=== PATIENT | male | born 1980 | race Caucasian/White ===

== ENCOUNTER → 2017-06-27 16:47 | Outpatient (CLI) | payer OTHER, SELFPAY ==
--- NOTE | 2017-06-27 16:52 | RAD_ITS ---
STUDY: X-RAY CHEST REASON FOR EXAM: Male, 37 years old. Chronic cough. TECHNIQUE: PA and lateral views of the chest. COMPARISON: CT dated May 20, 2015 FINDINGS: There are bibasilar streaky opacities. Normal size heart. Normal mediastinum and henrietta. Normal visualized pulmonary arteries. Normal visualized aortic arch and descending thoracic aorta. Normal visualized thoracic spine. Normal visualized ribs, clavicles, and shoulders. There is no demonstrated abnormality of the visualized soft tissue structures of the upper abdomen. RAD/Chest PA and Lateral IMPRESSION: Bibasilar streaky opacities likely secondary to underlying atelectasis and/or scarring. Electronically Signed: Luly Disla MD at 17:30 EDT Tel , Service support ,
== END ==
PROVIDERS: Family Provider Family Medicine; PCP Family Medicine; Visit Provider Family Medicine
DX: R05 Cough (principal)
CPT/HCPCS: 71046

== ENCOUNTER → 2018-09-20 | Outpatient (CLI) | payer OTHER, SELFPAY ==
[2018-09-20 12:32] LABS: AST(SGOT) 13 U/L (15-37); Alanine Aminotransfer ALT/SGPT 26 U/L (16-61); Alkaline Phosphatase 82 U/L (45-117); Anion Gap 8 (5-15); BUN 27 mg/dL (7-18); BUN/Creat Ratio 24.1 RATIO (10-20); Chloride 105 mmol/L (98-107); Creatinine, Serum 1.12 mg/dL (0.70-1.30); EST Glomerular Filtration Rate 77 mL/min (>60); Est Glom Filt Rate - Afr Amer 93 mL/min (>60); Globulin 4.1 g/dL (2.2-4.2); Glucose 88 mg/dL (74-106); Protein, Total 8.1 g/dL (6.4-8.2); Sodium Level 140 mmol/L (136-145)
[2018-09-20 12:57] LABS: Absolute Lymphocyte Count 0.71 X10^3/uL (0.83-4.51); Absolute Neutrophil Count 4.2 X10^3/uL (2.0-7.7); Basophil# 0.02 X10^3/uL; Basophil% 0.4 % (0-1); Eosinophil# 0.03 X10^3/uL; Eosinophils% 0.5 % (0-5); Hematocrit 47.3 % (40-54); Hemoglobin 15.5 g/dL (13.0-16.5); Lymphocyte # 0.71 X10^3/ul (4.0); Lymphocyte % 12.9 % (19-41); Mean Corp Hgb Conc 32.8 g/dL (32-36); Mean Corpuscular Hgb 28.8 pg (27.0-32.0); Mean Corpuscular Volume 87.9 fL (80-94); Mean Platelet Vol. 10.7 fl (6.2-12.0); Monocyte# 0.52 X10^3/uL; Monocyte% 9.4 % (0-10); NRBC Flagged by Analyzer 0 % (0-5); Neutrophil # 4.22 X10^3/uL (2.7-7.7); Neutrophil % 76.4 % (47-70); Platelet Count 214 K/mm3 (150-450); RBC Distribution Width CV 12.8 % (11.6-14.6); RBC Distribution Width SD 41.4 fl (35.1-43.9); Red Blood Count 5.38 M/mm3 (4.6-6.2); White Blood Count 5.5 K/mm3 (4.4-11.0)
[2018-09-20 12:59] LABS: Erythrocyte Sedimentation Rate 6 mm/hr (0-15)
[2018-09-21 15:11] LABS: ANTINUCLEAR ANTIBODIES DIRECT Negative (Negative)
== END | disposition home or self-care (01) ==
LOC: MFPLAB 10:19
PROVIDERS: Family Provider Family Medicine; PCP Family Medicine; Referring Provider Family Medicine; Visit Provider Family Medicine
DX: R50.9 Fever, unspecified (principal)
CPT/HCPCS: 36415; 80053; 85025; 85652; 86038

== ENCOUNTER → 2020-01-01 16:20 | Outpatient (CLI) | payer SELFPAY | PROVIDERS: PCP Family Medicine; Visit Provider Family Medicine | DX: Z20.828 Contact with and (suspected) exposure to other viral communicable diseases (principal) | CPT/HCPCS: 87635; U0003 ==

== ENCOUNTER 2020-04-23 12:16 | Outpatient (RCR) | payer OTHER, SELFPAY | END 2020-04-23 23:59 | LOC: IMMUN 12:16 | PROVIDERS: PCP Family Medicine; Visit Provider Family Medicine | DX: Z23 Encounter for immunization (principal) | CPT/HCPCS: 0011A; 0012A ==

== ENCOUNTER 2021-03-02 16:30 | Outpatient (CLI) | payer OTHER, SELFPAY | END 2021-03-02 23:59 | disposition short-term general hospital (02) | PROVIDERS: PCP Nurse Practitioner Family; Referring Provider Nurse Practitioner Family; Visit Provider Nurse Practitioner Family | DX: U07.1 COVID-19 (principal) | CPT/HCPCS: 87635; U0003; U0005 ==

== ENCOUNTER → 2021-09-13 | Outpatient (CLI) | payer OTHER, SELFPAY ==
[2021-09-13 12:16] LABS: Absolute Lymphocyte Count 1.64 X10^3/uL (0.83-4.51); Absolute Neutrophil Count 2.9 X10^3/uL (2.0-7.7); Basophil# 0.04 X10^3/uL; Basophil% 0.8 % (0-1); Eosinophil# 0.07 X10^3/uL; Eosinophils% 1.3 % (0-5); Hematocrit 46.6 % (40-54); Hemoglobin 15.3 g/dL (13.0-16.5); Lymphocyte # 1.64 X10^3/ul (0.83-4.51); Lymphocyte % 31.2 % (19-41); Mean Corp Hgb Conc 32.8 g/dL (32-36); Mean Corpuscular Hgb 28.3 pg (27.0-32.0); Mean Corpuscular Volume 86.3 fL (80-94); Mean Platelet Vol. 10.9 fl (6.2-12.0); Monocyte# 0.58 X10^3/uL; NRBC Flagged by Analyzer 0 % (0-5); Neutrophil # 2.92 X10^3/uL (2.7-7.7); Neutrophil % 55.5 % (47-70); Platelet Count 236 K/mm3 (150-450); RBC Distribution Width CV 13.1 % (11.6-14.6); RBC Distribution Width SD 40.8 fl (35.1-43.9); White Blood Count 5.3 K/mm3 (4.4-11.0)
[2021-09-13 12:40] LABS: ALB/GLOB Ratio 1.1 RATIO (0.9-2.4); AST(SGOT) 15 U/L (15-37); Alanine Aminotransfer ALT/SGPT 30 U/L (16-61); Albumin, Serum 4.1 g/dL (3.2-5.0); Alkaline Phosphatase 74 U/L (45-117); Anion Gap 5 (5-15); BUN 22 mg/dL (7-18); BUN/Creat Ratio 19.6 RATIO (10-20); Calcium,Total 9.4 mg/dL (8.5-10.1); Chloride 109 mmol/L (98-107); Cholesterol 208 mg/dL (200); Creatinine, Serum 1.12 mg/dL (0.70-1.30); EST Glomerular Filtration Rate 76 mL/min (>60); Est Glom Filt Rate - Afr Amer 92 mL/min (>60); Globulin 3.9 g/dL (2.2-4.2); Glucose 91 mg/dL (74-106); High Density Lipoprotein 32 mg/dL; Potassium 4.4 mmol/L (3.5-5.1); Sodium Level 140 mmol/L (136-145); Thyroid Stim Hormone (TSH) 1.02 uIU/mL (0.358-3.74); Triglycerides 350 mg/dL; Very Low Density Lipoprotein 70 mg/dL (5-40)
== END | disposition home or self-care (01) ==
LOC: MFPLAB 10:47
PROVIDERS: PCP Nurse Practitioner Family; Visit Provider Family Medicine
DX: Z00.00 Encounter for general adult medical examination without abnormal findings (principal); Z13.29 Encounter for screening for other suspected endocrine disorder; Z13.0 Encounter for screening for diseases of the blood and blood-forming organs and certain disorders involving the immune mechanism; Z13.1 Encounter for screening for diabetes mellitus
CPT/HCPCS: 36415; 80053; 80061; 83036; 84443; 85025

== ENCOUNTER → 2023-05-05 | Outpatient (CLI) | payer OTHER, SELFPAY ==
--- OUTSIDE RECORDS SUMMARY | 2023-05-05 17:36 | XMS RPT_ITS | CCD ---
Author Name Unknown Address [address] [place] [address] Organization [facility] Care Team Providers Care Customer Contact Specialist Name Role Phone Unavailable Primary Care Provider Mary Jolly (Pss) Primary Care Provider TATIANA Cagle Referring Unavailable Medications Current Medications Medication Drug Class(es) Dates Sig (Normalized) Sig (Original) amoxicillin 875 mg / clavulanate 125 mg oral tablet (1 source) Penicillin-class Antibacterial Start: 12-10-2022 End: 12-17-2022 take 1 tablet by mouth twice daily amoxicillin-clavulan ic acid (AUGMENTIN) 875-125 mg per tablet Indications: Rhinosinusitis Take 1 tablet by mouth two times a day for 7 days. 14 tablet 0 12/10/2022 12/17/2022 Active Completed/Discontinued Medications Medication Drug Class(es) Dates Sig (Normalized) Sig (Original) apremilast 30 mg oral tablet (2 sources) Start: 11-20-2022 OTEZLA 30 mg tablet Problems Problem Classification Problem Date Documented Da te Episodic/Chronic Other lower respiratory disease (1 source) Cough; Translations: [Acute cough] 12-10-2022 Episodic Other upper respiratory infections (1 source) Chronic sinusitis, unspecified; Translations: [Unspecified sinusitis (chronic)] 12-10-2022 Chronic Results Test Name Value Interpretation Reference Range Facil ity Vital Signs Date Time Vital Sign Value Performing Clinician Petrona mauricio 12-10-2022 08:27-0400 Body temperature 97.81 [degF] Kathleen Callejas APRN.CNP Work Phone: [facility] 12-10-2022 08:27-0400 Body weight 93.44 kg Kathleen Callejas APRN.CNP Work Phone: [facility] 12-10-2022 08:27-0400 Diastolic blood pressure 86 mm[Hg] Kathleen Callejas APRN.TERMINAL MANAGER Work Phone: [facility] 12-10-2022 08:27-0400 Heart rate 68 /min Kathleen Callejas APRN.TERMINAL MANAGER Work Phone: [facility] 12-10-2022 08:27-0400 Respiratory rate 18 /min Kathleen Callejas APRN.TERMINAL MANAGER Work Phone: [facility] 12-10-2022 08:27-0400 SaO2% (BldA) [Mass fraction] 96 % Kathleen Callejas APRN.TERMINAL MANAGER Work Phone: [facility] 12-10-2022 08:27-0400 Systolic blood pressure 125 mm[Hg] Kathleen Callejas APRN.TERMINAL MANAGER Work Phone: [facility] Encounters Encounter Date Encounter Type Care Provider Facility Start: 02-15-2023 End: 02-15-2023 ambulatory [facility] Facility:[facility] Start: 12-27-2022 Telephone encounter Tatiana sewell APRN.TERMINAL MANAGER Work Phone: [facility] Plan of Treatment Date Care Activity Detail Author Start: 09-14-2031 Urine microalbumin profile DTaP,Tdap,Td Vaccine (3 - Td or Tdap) [facility] Start: 10-28-2022 Covid-19 Vaccine ( season) Covid-19 Vaccine ( season) [facility] Start: 10-28-2022 Influenza vaccination Influenza Vacc ine (#1) [facility] Start: 02-27-2022 Depression Assessment Depression Ass essment [facility] Start: 2013 Lipid 1996 panel - S desean or Plasma Lipid Screening [facility] Start: 1997 Shingrix Vaccine (1 of 2) Shingrix V accine (1 of 2) [facility] Start: 1997 Urine microalbumin profile DTaP,Tdap,Td Vaccine (1 - Tdap) [facility] Start: 1996 Hepatitis C Screening Hepatitis C Sc reina [facility] Start: 1996 HIV Screening HIV Screening [facility] Start: 1984 Pneumococcal vaccination Pneum ococcal Vaccine (1 - PCV) [facility] Start: 1978 Hepatitis B Vaccine (1 of 3 - 3-dose series) Hepatitis B Vaccine (1 of 3 - 3-dose series) [facility] Immunizations Immunization Date Immunization Notes Care Provider Rigoberto abel 11-11-2020 influenza virus vacc ine, unspecified formulation Kathleen Callejas APRN.TERMINAL MANAGER Work Phone: [facility] Payers Date Payer Category Payer Unknown MMO MMO [employer] PPO [id number] 2018-Present [phone] [address] [place] [address] PPO [id number] 2018 Unknown [id number] 2018 Unknown [id number] Social History Date Type Detail Facility [facility]: [facility] Start: 12-10-2022 Tobacco use and exposure Smoke less tobacco non-user [facility] Start: 12-10-2022 End: 12-27-2022 Alcohol intake Current non-drinker of alcohol (finding) [facility] Start: 12-10-2022 End: 12-27-2022 History of Social function [facility] Start: 12-10-2022 End: 12-27-2022 Tobacco use panel [facility] Start: 1978 Sex Assigned At Not on file [facility] Progress note 02-15-2023 Note Date & Type Note Facility 02-15-2023 Note HNO ID: [id number] Author: Ashlyn Garcia APRN.TERMINAL MANAGER Service: ? Author Type: Nurse Practitioner Type: Progress Notes Filed: 02/15/2023 4:53 PM Note Text: Subjective Sinus Problem Associated symptoms include congestion, coughing and headaches. Pertinent negatives include no chills, fever or sore throat. Haseeb Peterson is a 42 year old male who presents with 10 days of sinus congestion and cough, worse in the past few days and recently having facial/sinus pressure on the right side of his face. No fever. He took a couple COVID tests at home which were negative. He has been taking Dayquil at home for symptoms. Review of Systems Constitutional: Negative for chills and fever. HENT: Positive for congestion and sinus pain. Negative for sore throat. Respiratory: Positive for cough and sputum production. Negative for shortness of breath. Cardiovascular: Negative. Neurological: Positive for headaches. BP 124/82 Pulse 66 Temp 36.8 ?C (98.2 ?F) Resp 16 Wt 94.9 kg (209 lb 3.2 oz) SpO2 97% No past medical history on file. PAST SURGICAL HISTORY Procedure Laterality Date APPENDECTOMY TONSILLECTOMY PRIMARY/SECONDARY Tonsillectomy ALLERGIES Patient has no known allergies. MEDICATIONS amoxicillin-clavulanate potassium (AUGMENTIN) 875-125 mg per tablet Take 1 tablet by mouth two times a day for 7 days. OTEZLA 30 mg tablet No family history on file. Social History Tobacco Use Smoking status: Never Smokeless tobacco: Never Substance Use Topics Alcohol use: No Drug use: No Objective Physical Exam Vitals and nursing note reviewed. Constitutional: Appearance: Normal appearance. HENT: Right Ear: Tympanic membrane, ear canal and external ear normal. Left Ear: Tympanic membrane, ear canal and external ear normal. Nose: Nasal tenderness, congestion and rhinorrhea present. Mouth/Throat: Pharynx: Uvula midline. No oropharyngeal exudate or posterior oropharyngeal erythema. Cardiovascular: Rate and Rhythm: Normal rate and regular rhythm. Heart sounds: Normal heart sounds. Pulmonary: Effort: Pulmonary effort is normal. No respiratory distress. Breath sounds: Normal breath sounds. No wheezing or rales. Musculoskeletal: Cervical back: Neck supple. Lymphadenopathy: Cervical: No cervical adenopathy. Skin: General: Skin is warm and dry. Findings: No erythema or rash. Neurological: Mental Status: He is alert. ASSESSMENT/PLAN: 1. Bacterial sinusitis - ICD9: 473.9, 041.9, ICD10: J32.9, B96.89 - Will begin treatment with as per antibiotic as written, see orders - The patient should also be given flonase nasal spray for the first 5-7 days of treatment. - Supportive care with plenty of fluids, rest, and analgesia prn. - AMOXICILLIN 875 MG-POTASSIUM CLAVULANATE 125 MG TABLET - Follow-up with your PCP in 3-5 days if symptoms have not improved or sooner if symptoms worsen - Discussed red flags and need for immediate medical evaluation if any occur. - Discussed supportive care treatment with fluids, rest and analgesia. - Discussed expected course of illness Ashlyn Garcia APRN.ARIADNA [facility] Progress note 12-27-2022 Note Date & Type Note Facility 12-27-2022 Note HNO ID: [id number] Author: Tatiana Amado APRN.TERMINAL MANAGER Service: ? Author Type: Nurse Practitioner Type: Progress Notes Filed: 12/27/2022 9:54 AM Note Text: Subjective HPI HPI Haseeb Peterson is a 42 year old male who presents today for CC of right great toe pain/redness. This started 2 days ago. Has tried otc medication without relief. Symptoms are worsened by rom/walking. Never had this before, denies injury. Hx of psoriatic arthritis. .Patient presents with: Pain (foot): right foot and great toe pain x 2 days No past medical history on file. PAST SURGICAL HISTORY Procedure Laterality Date APPENDECTOMY TONSILLECTOMY PRIMARY/SECONDARY Tonsillectomy ALLERGIES Patient has no known allergies. MEDICATIONS OTEZLA 30 mg tablet No family history on file. Social History Tobacco Use Smoking status: Never Smokeless tobacco: Never Substance Use Topics Alcohol use: No Drug use: No ROS Objective Blood pressure 112/72, pulse 70, temperature 36.1 ?C (96.9 ?F), resp. rate 16, weight 93.9 kg (207 lb), SpO2 98 %. Physical Exam Constitutional: General: He is not in acute distress. Appearance: He is not toxic-appearing or diaphoretic. HENT: Head: Normocephalic and atraumatic. Pulmonary: Effort: Pulmonary effort is normal. No accessory muscle usage or respiratory distress. Musculoskeletal: Feet: Neurological: Mental Status: He is alert and oriented to person, place, and time. ASSESSMENT/PLAN: 1. Great toe pain, right - ICD9: 729.5, ICD10: M79.674 Suspect first flair of gout Xray negative Declines lab testing. Tx with steroids F/u with pcp if s/s persist. - XR TOE AP/LAT/OBL RIGHT IMPRESSION: No radiographic evidence of acute osseous abnormality Dictated by : CIPRIANO DIAZ MD - PREDNISONE 10 MG TABLET Tatiana Amado APRN.ARIADNA [facility] Progress note 12-27-2022 Note Date & Type Note Facility 12-27-2022 Note HNO ID: [id number] Author: Liliana Ca RT(R) Service: Radiology Author Type: Technologist Type: Progress Notes Filed: 12/27/2022 8:12 AM Note Text: Radiology Service Progress Note PATIENT NAME: Haseeb Peterson DATE OF SERVICE: December 27, 2022 TIME: 8:01 AM PATIENT IDENTITY VERIFICATION COMPLETED USING TWO (2) IDENTIFIERS: Name and Date of confirmed by patient verbally. FALL SCREENING: Has the patient had 2 falls in the last year or 1 fall with injury or currently using an Ambulatory Assistive Device (Walker, Cane, Wheelchair, Crutches, etc.)? No PATIENT GENDER DATA: Male PATIENT RELEVANT IMPLANT DATA REVIEWED: Not Applicable RADIOLOGY DEPARTMENT: General X-ray: Exam(s) Completed: Lower Extremity X-Ray(s): Toes, Right PERIPHERAL IV DATA: Not applicable SIGNED BY: RT Mila(R) December 27, 2022 8:01 AM [facility] Note 12-27-2022 Telephone Encounter - Cecille Bocanegra RN - 12/27/2022 8:44 AM EDTTelephone Encounter - Delia Yuan LPN - 12/27/2022 8:41 AM EDT Note Date & Type Note Facility 12-27-2022 Miscellaneous Notes Formattin g of this note might be different from the original. Patient returned call and given provider's message below and patient verbalized understanding. Vania Bocanegra RN LEFT MESSAGE FOR PATIENT TO CALL BACK /SHERRY FAN Please notify that xray normal. Prednisone to pharmacy. documented in this encounter [facility] Progress note 12-10-2022 Note Date & Type Note Facility 12-10-2022 Note HNO ID: [id number] Author: Kathleen Callejas APRN.TERMINAL MANAGER Service: ? Author Type: Nurse Practitioner Type: Progress Notes Filed: 12/10/2022 8:37 AM Note Text: CC: Patient presents with: Pain, Sinus: Head congestion, pain in ears and teeth x 10 days HPI: Hsaeeb Peterson is a 42 year old male who presents to the office with complaint of head congestion, cough, nonproductive, and sinus symptoms for 10 days. Symptoms are worsening Associated symptoms includes nasal congestion, facial pain/pressure, and ear pressure . Denies fever, nausea, vomiting , and diarrhea. Treatments tried include nothing so far. with no relief of symptoms. Sick contacts: unknown. History of asthma, frequent episodes of bronchitis, chronic bronchitis, bronchiectasis or COPD: No Smoker: No Seasonal/environmental allergies: No The ROS is otherwise negative. The patient's pmh, medications, allergies, and past visits are reviewed. PHYSICAL EXAM: BP 125/86 Pulse 68 Temp 36.6 ?C (97.8 ?F) Resp 18 Wt 93.4 kg (206 lb) SpO2 96% General appearance: alert, cooperative, pleasant, in no acute distress Head: Normocephalic Eyes: EOM's intact, conjunctiva pink and moist, no icterus, sclera white, non-injected Ears: Right ear: External ear/canal- Normal, TM - clear with good landmarks. Left ear: External ear/canal- Normal, TM - clear with good landmarks Oropharynx:moist without lesions, No erythema, exudates or tonsillar hypertrophy. Heart: Negative. RRR without obvious murmur, gallop, or rubs. No ectopy. Lungs: clear to auscultation, without rales or wheeze, good air exchange No past medical history on file. PAST SURGICAL HISTORY Procedure Laterality Date APPENDECTOMY TONSILLECTOMY PRIMARY/SECONDARY Tonsillectomy ALLERGIES Patient has no known allergies. MEDICATIONS amoxicillin-clavulanic acid (AUGMENTIN) 875-125 mg per tablet Take 1 tablet by mouth two times a day for 7 days. OTEZLA 30 mg tablet No family history on file. Social History Tobacco Use Smoking status: Never Smokeless tobacco: Never Substance Use Topics Alcohol use: No Drug use: No ASSESSMENT/PLAN: 1. Rhinosinusitis - ICD9: 473.9, ICD10: J32.9 (primary diagnosis) - AMOXICILLIN 875 MG-POTASSIUM CLAVULANATE 125 MG TABLET - PREDNISONE 20 MG TABLET 2. Acute cough - ICD9: 786.2, ICD10: R05.1 - BENZONATATE 100 MG CAPSULE Prescription instructions reviewed with patient as applicable. Potential red flag symptoms discussed with the patient. Reviewed appropriate action plan to take if red flag symptoms occur. Patient agreeable to treatment plan. Kathleen Callejas APRN.ARIADNA [facility] History of Present illness Narrative 12-10-2022 Kathleen Callejas APRN.ARIADNA - 12/10/2022 8:35 AM EDT Note Date & Type Note Facility 12-10-2022 History of Presen t illness Narrative CC: Patient presents with: Pain, Sinus: Head congestion, pain in ears and teeth x 10 days HPI: Haseeb Peterson is a 42 year old male who presents to the office with complaint of head congestion, cough, nonproductive, and sinus symptoms for 10 days. Symptoms are worsening Associated symptoms includes nasal congestion, facial pain/pressure, and ear pressure . Denies fever, nausea, vomiting , and diarrhea. Treatments tried include nothing so far. with no relief of symptoms. Sick contacts: unknown. History of asthma, frequent episodes of bronchitis, chronic bronchitis, bronchiectasis or COPD: No Smoker: No Seasonal/environmental allergies: No The ROS is otherwise negative. The patient's pmh, medications, allergies, and past visits are reviewed. PHYSICAL EXAM: BP 125/86 Pulse 68 Temp 36.6 C (97.8 F) Resp 18 Wt 93.4 kg (206 lb) SpO2 96% General appearance: alert, cooperative, pleasant, in no acute distress Head: Normocephalic Eyes: EOM's intact, conjunctiva pink and moist, no icterus, sclera white, non-injected Ears: Right ear: External ear/canal- Normal, TM - clear with good landmarks. Left ear: External ear/canal- Normal, TM - clear with good landmarks Oropharynx:moist without lesions, No erythema, exudates or tonsillar hypertrophy. Heart: Negative. RRR without obvious murmur, gallop, or rubs. No ectopy. Lungs: clear to auscultation, without rales or wheeze, good air exchange No past medical history on file. PAST SURGICAL HISTORY Procedure Laterality Date APPENDECTOMY TONSILLECTOMY PRIMARY/SECONDARY <AGE 10 Tonsillectomy ALLERGIES Patient has no known allergies. MEDICATIONS amoxicillin-clavulanic acid (AUGMENTIN) 875-125 mg per tablet Take 1 tablet by mouth two times a day for 7 days. OTEZLA 30 mg tablet No family history on file. Social History Tobacco Use Smoking status: Never Smokeless tobacco: Never Substance Use Topics Alcohol use: No Drug use: No ASSESSMENT/PLAN: 1. Rhinosinusitis - ICD9: 473.9, ICD10: J32.9 (primary diagnosis) - AMOXICILLIN 875 MG-POTASSIUM CLAVULANATE 125 MG TABLET - PREDNISONE 20 MG TABLET 2. Acute cough - ICD9: 786.2, ICD10: R05.1 - BENZONATATE 100 MG CAPSULE Prescription instructions reviewed with patient as applicable. Potential red flag symptoms discussed with the patient. Reviewed appropriate action plan to take if red flag symptoms occur. Patient agreeable to treatment plan. Kathleen Callejas APRN.ARIADNA documented in this encounter [facility] Evaluation note Note Date & Type Note Facility documented in this encounter [facility] Summary Purpose Family History No Family History Records Found Advance Directives No Advanced Directives Records Found Additional Source Comments Source Comments (unrecognize d section and content) In the event this informatio n is protected by the Federal Confidentiality of Alcohol and Drug Abuse Patient Records regulations: The Federal rules restrict any use of the information to criminally investigate or prosecute any alcohol or drug abuse patient[facility] the event this information is protected by the Federal Confidentiality of Alcohol and Drug Abuse Patient Records regulations: The Federal rules restrict any use of the information to criminally investigate or prosecute any alcohol or drug abuse patient.[facility] Reason for Visit (unrecogniz ed section and content) Reason Comments Results Care Teams (unrecognized sec tion and content) (unrecognized sect ion and content) No Status Records Found INFORMATION SOURCE (unrecogn ized section and content) FOR RECORDS PERTAINING TO PATIENTS WHO ARE OR HAVE BEEN ENROLLED IN A CHEMICAL DEPENDENCY/SUBSTANCEABUSE PROGRAM, SOME INFORMATION MAY BE OMITTED. This clinical summary was aggregated from multiple sources. Caution should be exercised in using it in the provision of clinical care. This summary normalizes information from multiple sources, and as a consequence, information in this document may materially change the coding, format and clinical context of patient data. In addition, data may be omitted in some cases. CLINICAL DECISIONS SHOULD BE BASED ON THE PRIMARY CLINICAL RECORDS. [facility] [employer] [facility]. provides no warranty or guarantee of the accuracy or completeness of information in this document.
[2023-05-05 17:38] LABS: Hematocrit 43.3 % (40-54); Hemoglobin 14.5 g/dL (13.0-16.5); Mean Corp Hgb Conc 33.5 g/dL (32-36); Mean Corpuscular Hgb 29.1 pg (27.0-32.0); Mean Corpuscular Volume 86.8 fL (80-94); Mean Platelet Vol. 11.4 fl (6.2-12.0); Platelet Count 251 K/mm3 (150-450); RBC Distribution Width CV 12.7 % (11.6-14.6); RBC Distribution Width SD 39.8 fl (35.1-43.9); Red Blood Count 4.99 M/mm3 (4.6-6.2); White Blood Count 6.9 K/mm3 (4.4-11.0)
[2023-05-05 17:50] LABS: Erythrocyte Sedimentation Rate 5 mm/hr (0-20)
[2023-05-05 18:18] LABS: Uric Acid 6.8 mg/dL (3.5-7.2)
== END | disposition home or self-care (01) ==
LOC: MFPLAB 16:06
PROVIDERS: PCP Nurse Practitioner Family; Visit Provider Family Medicine
DX: M10.9 Gout, unspecified (principal)
CPT/HCPCS: 36415; 84550; 85027; 85652

== ENCOUNTER → 2023-06-19 | Outpatient (CLI) | payer OTHER, SELFPAY ==
[2023-06-19 17:45] LABS: Uric Acid 8.3 mg/dL (3.5-7.2)
== END | disposition home or self-care (01) ==
LOC: MFPLAB 15:41
PROVIDERS: PCP Nurse Practitioner Family; Visit Provider Family Medicine
DX: M10.9 Gout, unspecified (principal)
CPT/HCPCS: 36415; 84550

== ENCOUNTER → 2024-04-30 | Outpatient (CLI) | payer OTHER, SELFPAY ==
[2024-05-02 16:08] LABS: QNTFERON TB Mitogen Value > 10.00 IU/mL (.); QNTFERON TB Nil Value > 10.00 IU/mL (.); QNTFERON TB1+ Ag Value > 10.00 IU/mL (.); QNTFERON TB2+ Ag Value > 10.00 IU/mL (.); QNTIFERON TB Positive Criteria Indeterminate (Negative)
== END | disposition home or self-care (01) ==
LOC: MTLAB 15:22
PROVIDERS: PCP Nurse Practitioner Family; Referring Provider Physician Assistant; Visit Provider Physician Assistant
DX: L40.0 Psoriasis vulgaris (principal); Z79.899 Other long term (current) drug therapy
CPT/HCPCS: 36415; 86480

== ENCOUNTER → 2024-05-31 | Outpatient (CLI) | payer OTHER, SELFPAY ==
[2024-06-03 16:08] LABS: QNTFERON TB Mitogen Value > 10.00 IU/mL (.); QNTFERON TB Nil Value > 10.00 IU/mL (.); QNTFERON TB1+ Ag Value > 10.00 IU/mL (.); QNTFERON TB2+ Ag Value > 10.00 IU/mL (.); QNTIFERON TB Positive Criteria Indeterminate (Negative)
== END | disposition home or self-care (01) ==
LOC: MTLAB 07:45
PROVIDERS: PCP Nurse Practitioner Family; Referring Provider Physician Assistant; Visit Provider Physician Assistant
DX: L40.0 Psoriasis vulgaris (principal)
CPT/HCPCS: 36415; 86480

== ENCOUNTER → 2024-08-08 | Outpatient (CLI) | payer OTHER, SELFPAY ==
[2024-08-08 10:45] LABS: Absolute Lymphocyte Count 1.55 X10^3/uL (0.83-4.51); Absolute Neutrophil Count 2.3 X10^3/uL (2.0-7.7); Basophil# 0.04 X10^3/uL; Basophil% 0.9 % (0-1); Eosinophil# 0.06 X10^3/uL; Eosinophils% 1.3 % (0-5); Hemoglobin 14.8 g/dL (13.0-16.5); Lymphocyte # 1.55 X10^3/ul (0.83-4.51); Lymphocyte % 34.1 % (19-41); Mean Corp Hgb Conc 33.6 g/dL (32-36); Mean Corpuscular Volume 86.3 fL (80-94); Mean Platelet Vol. 10.8 fl (6.2-12.0); Monocyte# 0.55 X10^3/uL; Monocyte% 12.1 % (0-10); NRBC Flagged by Analyzer 0 % (0-5); Neutrophil # 2.34 X10^3/uL (2.7-7.7); Neutrophil % 51.4 % (47-70); Platelet Count 209 K/mm3 (150-450); RBC Distribution Width CV 12.7 % (11.6-14.6); RBC Distribution Width SD 39.9 fl (35.1-43.9); White Blood Count 4.6 K/mm3 (4.4-11.0)
[2024-08-08 11:13] LABS: ALB/GLOB Ratio 1.5 RATIO (0.9-2.4); AST(SGOT) 20 U/L (<=37); Alanine Aminotransfer ALT/SGPT 19 U/L (<=46); Albumin, Serum 4.4 g/dL (3.5-5.0); Alkaline Phosphatase 74 U/L (40-129); Anion Gap 12 (5-15); BUN 20 mg/dL (4-19); BUN/Creat Ratio 18.2 RATIO (10-20); Calcium,Total 9.7 mg/dL (7.6-11.0); Carbon Dioxide 23.1 mmol/L (21.0-32.0); Chloride 105 mmol/L (98-108); Cholesterol 209 mg/dL (<=200); Creatinine, Serum 1.12 mg/dL (0.70-1.20); EST Glomerular Filtration Rate 82 (>60); Glucose 93 mg/dL (70-99); High Density Lipoprotein 32 mg/dL; Low Density Lipoprotein Calc. 117 mg/dL; Potassium 4.5 mmol/L (3.3-5.1); Protein, Total 7.4 g/dL (5.9-8.4); Sodium Level 139 mmol/L (133-145); Total Bilirubin 0.78 mg/dL (0.00-1.30); Triglycerides 298 mg/dL; Very Low Density Lipoprotein 60 mg/dL (5-40); cholesterol:hdl ratio screen 6.51
--- OUTSIDE RECORDS SUMMARY | 2024-08-08 16:31 | XMS RPT_ITS | CCD ---
Author Organization [facility] Care Team Providers Care Software Program Manager Name Role Phone Unavailable Primary Care Provider UnavailMary Lange ([facility]) Primary Care Provider Sana vailable TATIANA AMADO Referring Unavailable Mary Flores ([facility]) Primary Care Provider Sana vailable Sidney COMMERCIAL FISHERMAN-C, Shelley Primary Care Provider [phone] PA-CLatrice Attending Provider [phone] PA-C, Latrice Referring Provider Latrice Morse Attending Unavailable Latrice Morse Referring Unavailable Sidney COMMERCIAL FISHERMAN, Shelley Primary Care Unavailable Sidney COMMERCIAL FISHERMAN, Shelley Primary Care Unavailable Lupe Willoughyb Attending Unavailable PALatrice Attending Unavailable Latrice Morse Referring Unavailable Sidney COMMERCIAL FISHERMAN, Shelley Primary Care Unavailable Sidney COMMERCIAL FISHERMAN, Shelley Referring Unavailable Brian Leon Attending Unavailable Sidney COMMERCIAL FISHERMAN, Shelley Primary Care Unavailable Medications Current Medications Medication Drug Class(es) [...] days. 14 tablet 0 12/10/2022 12/17/2022 Active Comment on above: Take 1 tablet by sakina th two times a day for 7 days. apremilast 30 mg oral tablet (7 sources) Start: 11-20-2023 take 1 tablet by mouth once Apremilast (Otezla) 30 mg tablet Active 30 mg PO ONCE November 20, 2023 6:14am Start: 11-20-2023 End: 11-20-2023 take 1 tablet by mouth twice daily Apremilast (Otezla) 30 mg tablet Discontinued 30 mg PO TWICE A DAY November 20, 2023 12:00am November 20, 2023 6:14am Start: 11-20-2022 OTEZLA 30 mg t ablet 11/20/2022 Active benzonatate 100 mg oral capsule (1 source) Non-narcotic Antitussive Start: 12-10-2022 End: 12-17-2022 take 1 capsule by mouth every eight hours as needed for cough and cough benzonatate (TESSALON PERLES) 100 mg capsule Indications: Acute cough Take 1 capsule by mouth three times a day as needed for up to 7 days. 21 capsule 0 12/10/2022 12/17/2022 Active Comment on above: Take 1 capsule by mo [facility] three times a day as needed for up to 7 days. predniSONE 10 mg oral tablet (2 sources) Start: 12-27-2022 End: 01-08-2023 predniSONE (DELTASONE) 10 mg tablet Indications: Great toe pain, right Take 4 tabs daily x 3 days, then 3 tabs x 3 days, 2 tabs x 3 days, then 1 tab x3 days with food. 30 tablet 0 12/27/2022 01/08/2023 Active Start: 12-10-2022 End: 12-15-2022 take 2 tablets by mouth once daily predniSONE (DELTASONE) 20 mg tablet Indications: Rhinosinusitis Take 2 tablets by mouth once daily for 5 days. 10 tablet 0 12/10/2022 12/15/2022 Active Comment on above: Take 2 tablets by [facility] once daily for 5 days. Take 4 tabs daily x 3 days, then 3 tabs x 3 days, 2 tabs x 3 days, then 1 tab x3 days with food. tobramycin 3 mg/ml ophthalmic solution (2 sources) Aminoglycoside Antibacterial Start: 11-20-2023 Tobramycin 0.3 % drops Active 1 NMA OPHTHALMIC Q2H 5 November 20, 2023 12:00am to affected eye while awake first 24 hours, then 3x/day on days 2-5 Problems Problem Classification Problem Date Documented Da te Episodic/Chronic Gout and other crystal arthropathies (1 source) Gout, unspecified; Translations: [Gout, unspecified] Onset: 06-25-2023 Chronic Other inflammatory condition of skin (1 source) Psoriasis vulgaris; Translations: [Psoriasis vulgaris] Onset: 06-03-2024 Chronic Other lower respiratory disease (1 source) Cough; Translations: [Acute cough] 12-10-2022 Episodic Other upper respiratory infections (1 source) Chronic sinusitis, unspecified; Translations: [Unspecified sinusitis (chronic)] 12-10-2022 Chronic Results Test Name Value Interpretation Reference Range Facility Quantiferon TB-Gold+on 06-03 QFT MITOGEN BONNIE > 10.00 Normal . [facility] Comment on above: Performed By: #### L 3400.8000 #### [facility] [address] [place], [place], [phone] (487) QFT NIL VALUE > 10.00 Normal . [facility] Comment on above: Performed By: #### L [id number] #### [facility] [address] [place], [place], [id number] (774) QFT TB GOLD+ Comment Normal . [facility] Comment on above: Result Comment: Surinder tiFERON-TB Gold Plus is a qualitative indirect test for M tuberculosis infection (including disease) and is intended for use in conjunction with risk assessment, radiography, and other medical and diagnostic evaluations. The QuantiFERON-TB Gold Plus result is determined by subtracting the Nil value from either TB antigen (Ag) value. The Mitogen tube serves as a control for the test. Performed By: #### L 3400.8000 #### [facility] [address] [place], [place], [phone] (115) QFT TB POS CRIT Indeterminate Abnormal Negative [facility] Comment on above: Result Comment: Nil (negative control) gave high response. This indicated elevated levels of circulating interferon gamma or the presence of heterophile antibodies. The specimen received for QuantiFERON testing was incubated by the ordering institution. Specific procedures outlined in our Directory of Services and in the package insert for the QuantiFERON Gold (In Tube) test must be followed to enable for proper stimulation of cells for the production of interferon gamma. Chemiluminescence immunoassay methodology Performed at: [facility] [employer] [id number] Nick Setter: Maverick Celeste PhD, Phone: [phone] Performed By: #### L [id number] #### [facility] [address] [place], [place], [id number] QFT TB1+ AG BONNIE > 10.00 Normal . [facility] Comment on above: Performed By: #### L [id number] #### [facility] [address] [place], [place], [id number] QFT TB2+ AG BONNIE > 10.00 Normal . [facility] Comment on above: Performed By: #### L [id number] #### [facility] [address] [place], [address] M. tuberculosis tuberculin s alexandra IFN-g Ql (Bld)Ordered By: Latrice Aguilar on 05-31-2024 TB Test (QFT) Antigen 1 > 10.00 IU/mL . [facility] Quantiferon-TB Gold Plus tiffany tOrdered By: Latrice Aguilar on 05-31-2024 TB Test (QFT) Comment . [facility] Comment on above: QuantiFERON-TB Gold Plus is a qualitative indirect test forM tuberculosis infection (including disease) and isintended for use in conjunction with risk assessment,radiography, and other medical and diagnostic evaluations.The QuantiFERON-TB Gold Plus result is determined bysubtracting the Nil value from either TB antigen (Ag)value. The Mitogen tube serves as a control for the test. TB Test (QFT) Antigen 2 > 10.00 IU/mL . [facility] TB Test (QFT) Mitogen > 10.00 IU/mL . [facility] TB Test (QFT) Nil > 10.00 IU/mL . [facility] TB Test (QFT) Positive Criteria Indeterminate High Negative [facility] Comment on above: Nil (negative contro l) gave high response. This indicatedelevated levels of circulating interferon gamma or thepresence of heterophile antibodies.The specimen received for QuantiFERON testing was incubatedby the ordering institution. Specific procedures outlinedin our Directory of Services and in the package insert forthe QuantiFERON Gold (In Tube) test must be followed toenable for proper stimulation of cells for the productionof interferon gamma. Chemiluminescence immunoassaymethodologyPerformed at: [facility] [employer] [id number] Director: Maverick Celeste PhD, Phone: [phone] Quantiferon TB-Gold+on 05-02 QFT MITOGEN BONNIE > 10.00 Normal . [facility] Comment on above: Performed By: #### L [id number] #### [facility] [address] [place], [address] QFT NIL VALUE > 10.00 Normal . [facility] Comment on above: Performed By: #### L [id number] #### [facility] [address] [place], [address] QFT TB GOLD+ Comment Normal . [facility] Comment on above: Result Comment: Surinder tiFERON-TB Gold Plus is a qualitative indirect test for M tuberculosis infection (including disease) and is intended for use in conjunction with risk assessment, radiography, and other medical and diagnostic evaluations. The QuantiFERON-TB Gold Plus result is determined by subtracting the Nil value from either TB antigen (Ag) value. The Mitogen tube serves as a control for the test. Performed By: #### L [id number] #### [facility] [address] [place], [place], [id number] QFT TB POS CRIT Indeterminate Abnormal Negative [facility] Comment on above: Result Comment: Nil (negative control) gave high response. This indicated elevated levels of circulating interferon gamma or the presence of heterophile antibodies. The specimen received for QuantiFERON testing was incubated by the ordering institution. Specific procedures outlined in our Directory of Services and in the package insert for the QuantiFERON Gold (In Tube) test must be followed to enable for proper stimulation of cells for the production of interferon gamma. Chemiluminescence immunoassay methodology Performed at: [facility] [address] [place], [place] [id number] Nick Setter: Maverick Celeste PhD, Phone: [phone] Performed By: #### L [id number] #### [facility] [address] [place], [place], [id number] QFT TB1+ AG BONNIE > 10.00 Normal . [facility] Comment on above: Performed By: #### L [id number] #### [facility] [address] [place], [place], [id number] QFT TB2+ AG BONNIE > 10.00 Normal . [facility] Comment on above: Performed By: #### L [id number] #### [facility] [address] [place], [address] M. tuberculosis tuberculin s alexandra IFN-g Ql (Bld)Ordered By: Latrice Aguilar on 04-30-2024 TB Test (QFT) Antigen 1 > 10.00 IU/mL . [facility] Quantiferon-TB Gold Plus tiffany tOrdered By: Latrice Aguilar on 04-30-2024 TB Test (QFT) Comment . [facility] Comment on above: QuantiFERON-TB Gold Plus is a qualitative indirect test forM tuberculosis infection (including disease) and isintended for use in conjunction with risk assessment,radiography, and other medical and diagnostic evaluations.The QuantiFERON-TB Gold Plus result is determined bysubtracting the Nil value from either TB antigen (Ag)value. The Mitogen tube serves as a control for the test. TB Test (QFT) Antigen 2 > 10.00 IU/mL . [facility] TB Test (QFT) Mitogen > 10.00 IU/mL . [facility] TB Test (QFT) Nil > 10.00 IU/mL . [facility] TB Test (QFT) Positive Criteria Indeterminate High Negative [facility] Comment on above: Nil (negative contro l) gave high response. This indicatedelevated levels of circulating interferon gamma or thepresence of heterophile antibodies.The specimen received for QuantiFERON testing was incubatedby the ordering institution. Specific procedures outlinedin our Directory of Services and in the package insert forthe QuantiFERON Gold (In Tube) test must be followed toenable for proper stimulation of cells for the productionof interferon gamma. Chemiluminescence immunoassaymethodologyPerformed at: - [facility] [id number] [place], [place] [id number] Director: Maverick Celeste PhD, Phone: [phone] Urgent Care Visit Reporton 0 11-20-2023 Urgent Care Visit Report [facility] [address], [address] [place] [address] OFFICE VISIT Date of Service: 11/20/23 MR#: [id number] Acct: [id number] Name: HASEEB DOVER Rep #: [id number] : 1980 Provider: FEDERICA Jerry Age/Sex: 43/M [facility] [facility] Status: Signed Intake Vital Signs 11/20/23 06:13 Height 5 ft 11 in Weight: 208 lb BMI 29.0 BP 116/60 Pulse 75 Temp 98.6 F Temp Source Temporal Pulse Oximetry (%) 98 Oxygen Delivery Method room air Intake Visit Reasons: L EYE COMPLAINT/CONCERN FOR PINK EYE Allergies No Known Allergies Allergy (Verified 11/20/23 06:10) Medications ???Medication ???Instructions ???Recorded ???Confirmed ???Type apremilast 30 mg tablet (Otezla) 30 mg PO ONCE 11/20/23 11/20/23 History tobramycin 0.3 % eye drops 1 drp ophthalmic (eye) Q2H #5 mL 11/20/23 11/20/23 Rx PFSH Social History Smoking Status: Never smoker HPI HPI Details: HASEEB DOVER, is a 43 M who presents to the office today for initial evaluation new onset left eye conjunctival injection with exudate first noticed this morning upon awakening. No vision changes or eye globe pain. No complaints of fever, chills, sweats, lightheadedness/dizziness, nausea/vomiting. No segx-hgc-gzvrbew ophthalmic drops tried to assist. No other associated symptoms and no other alleviating/aggravating factors. ROS Const Constitutional: No other (As above) Exam Const General: cooperative, healthy appearing and no acute distress Orientation: alert, awake and oriented x3 HENMT Head: normal to inspection Ears: hearing grossly normal bilaterally and external ears normal Nose: external nose normal and no nasal discharge Eyes General: appearance normal, both eyes and all related structures Other: Except left conjunctival injection with exudate; negative limbus OU Neck Neck: normal visual inspection, no meningeal signs and supple Resp Effort Inspection: normal respiratory effort and able to speak in complete sentences Cardio Rate: regular rate Pulses: radial pulses present Skin General: no rashes or lesions noted Neuro General: patient alert, patient awake and patient oriented x3 Cognition: normal cognition Speech: speech normal Psych Appearance: grossly normal Mental Status: mental status grossly normal Mood: congruent mood Affect: normal affect Speech and Movement: speech and movement normal Attitude: cooperative Diagnoses Acute conjunctivitis H10.30 Assessment and Plan Assessment and Plan (1) Acute conjunctivitis: Status: Acute Plan: Tobrex drops as prescribed today to affected eye(s). Supportive measures as instructed today. Work excuse declined. Follow-up with PCP or ophthalmology in 2 to 3 days should symptoms not improve, sooner should symptoms only worsen or any other concerns develop. Patient states acknowledging understanding all the above Coding Level of Care Code Off vis,new,level 3 Assessment and Plan Assessment and Plan Medications: New tobramycin 0.3% to affected eye while awake first 24 hours, then 3x/day on days 2-5 1 drp ophthalmic (eye) Q2H 5 mL 0RF 11/20/23 0725 Date ___ Brian Doyle Signature: Date ___ (if applicable) CC: Normal [facility] Serum or plasma uric acid me asurement (mass/volume)Ordered By: Lupe Willoughby on 06-19-2023 Urate [Mass/Vol] 8.3 mg/dL 3.5-7.2 [facility] Comment on above: The drugs N-Acetylcy steine and Metamizole may falsely depress this assay. Uric Acidon 06-19-2023 URIC 8.3 mg/dL High 3.5-7.2 [facility] Comment on above: Result Comment: The drugs N-Acetylcysteine and Metamizole may falsely depress this assay. Performed By: #### L 501.1400 #### [facility] [address] [place], [address] Basophil percentageOrdered B y: Lupe Willoughby on 05-05-2023 Hemoglobin (Bld) [Mass/Vol] 14.5 g/dL 13.0-16.5 [facility] WBC (Bld) [#/Vol] 6.9 10*3/uL 4.4-11.[address] [facility] Determination of erythrocyte mean corpuscular volume (MCV)Ordered By: Lupe Willoughby on 05-05-2023 MCV (RBC) [Entitic vol] 86.8 fL 80-94 [facility] Erythrocyte distribution wid th ratioOrdered By: Lupe Willoughby on 05-05-2023 Erythrocyte distribution width (RBC) [Ratio] 12.7 % 11.6-14.6 [facility] Erythrocyte distribution wid th standard deviationOrdered By: Lupe Willoughby on 05-05-2023 Erythrocyte distribution width (RBC) [Entitic vol] 39.8 fL 35.1-43.9 [facility] Erythrocyte sedimentation ra teOrdered By: Lupe Willoughby on 05-05-2023 ESR (Bld) [Velocity] 5 mm/h 0-20 [facility] Hematocrit Auto (Bld) [Volum e fraction]Ordered By: Lupe Willoughby on 05-05-2023 Hematocrit (Bld) [Volume fraction] 43.3 % 40-54 [facility] - Hematology and Cell countsOrdered By: Lupe Willoughby on 05-05-2023 MCH (RBC) [Entitic mass] 29.1 pg 27.0-32.0 [facility] MCHC (RBC) [Mass/Vol] 33.5 g/dL 32-36 [facility] Platelet mean volume (Bld) [Entitic vol] 11.4 fL 6.2-12.0 [facility] Platelets (Bld) [#/Vol] 251 10*3/uL 150-450 [facility] RBC Auto (Bld) [#/Vol]Ordere d By: Lupe Willoughby on 05-05-2023 RBC (Bld) [#/Vol] 4.99 10*6/uL 4.6-6.2 [facility] Serum or plasma uric acid me asurement (mass/volume)Ordered By: Lupe Willoughby on 05-05-2023 Urate [Mass/Vol] 6.8 mg/dL 3.5-7.2 [facility] Comment on above: The drugs N-Acetylcy steine and Metamizole may falsely depress this assay. CNOVon 02-15-2023 CNOV Office Visit ([facility] ) HASEEB DOVER ([id number]) 1980 M Date Time Provider Department 02/15/23 4:45 PM ASHLYN GARCIA [facility] During your visit today, we recorded the following information about you: Temperature Pulse Respiration Blood pressure 98.2 degrees 66/minute 16/minute 124/82 Weight 94.9 kg Ashlyn Garcia APRN.CNP 02/15/2023 4:51 PM Signed ASSESSMENT/PLAN: 1. Bacterial sinusitis - ICD9: 473.9, [...] Discussed expected course of illness Ashlyn Garcia APRN.CNP Adult Sinusitis Patient Education What is Sinusitis? Sinusitis [nksk-ogc-nebi-tis] is inflammation of the sinuses or swelling of the lining of the sinus cavity or nose. During an infection the sinuses become blocked with fluid causing swelling of the lining of the sinuses. Symptoms: (viral and bacterial infections) Stuffy nose Runny nose Postnasal drip Fever Toothache Headache Tiredness Cough Sore throat Face and head pressure and or pain Common causes: 98% of sinus infections are viral caused by viruses. Risk Factors of Sinusitis Include: Allergies, air pollution, indoor humidity and outdoor temperature changes, andstructural changes in the nose may contribute to sinus pain, pressure and congestion. When to get help? Temperature greater than 100.4 ?F Symptoms lasting more than 10 days or worsening symptoms greater than 7-10 days. If you do not improve or worsen after a course of antibiotics, you should be re-examined. Diagnosis and Treatment: Your healthcare provider will ask a number of questions about your symptoms and how long they have occurred. If symptoms of sinusitis persist greater than 10 days, it is possible you have a bacterial sinus infection and an antibiotic is prescribed. If it is viral, antibiotics will not help. You may be instructed to take kply-tuh-trlccvo medications for symptoms. including fever reducers acetaminophen or ibuprofen, nasal saline spray, cough and cold preparations and decongestants as prescribed by the physician, nurse practitioner or physician assistant fitness manager. Self-Care and Prevention: Rest Fluids for hydration Good hand washing Humidifier Avoid smoking and exposure to second hand smoke Avoid sick contacts Ashlyn Garcia APRN.TRAIN ATTENDANT 02/15/2023 4:53 PM Signed Subjective Sinus Problem Associated symptoms include congestion, coughing and headaches. Pertinent negatives include no chills, fever or sore throat. Haseeb Dover is a 42 year old male who [...] effort is normal. No respiratory distress. Breath (more content not included)... Normal [facility] CNOVon 12-27-2022 CNOV Office Visit ([facility] ) HASEEB DOVER ([id number]) 1980 M Date Time Provider Department 12/27/22 7:15 AM TATIANA AMADO [facility] During your visit today, we recorded the following information about you: Temperature Pulse Respiration Blood pressure 96.9 degrees 70/minute 16/minute 112/72 Weight 93.9 kg Tatiana Amado APRN.CNP 12/27/2022 9:54 AM Signed Subjective HPI HPI Haseeb Dunbarfredy is a 42 year old male who [...] - PREDNISONE 10 MG TABLET Tatiana Amado APRN.Tatiana Boyd APRN.CNP 12/27/2022 8:08 AM Signed Low Purine Diet Recommendations for Gout Gout is a form of arthritis which can occur as sudden, severe attacks of pain, with redness and tenderness in the joints of the body. Too much uric acid in the blood (hyperuricemia), is one cause of gout. Uric acid is a waste product formed from the breakdown of purines. It is helpful to lower your uric acid level through your diet as well as by taking your prescribed medication. Foods high in primes which should be avoided include: Organ meats: such as liver, brain, kidneys, heart, and sweetbreads Game meats: goose, partridge, duck Gravy, broth, bouilloin, and consomme Mincemeat Seafood such as garcia, sardines, anchovies, scallops, mussels, mackerel, caviar and kehinde (fish eggs) Yeast extracts such as: Marmite, Vegemite, Triana's and Bhatti's yeast. In addition to avoiding the above named foods, other aspects of your diet should also be considered. Increase Your Fluid Consumption - Fluids aid in the removal of uric acid from the body. Drink approximately 8-10 eight ounce glasses of water or other non-caloric fluid per day. Weight Control - Maintain a healthy weight. Obesity is associated with gout and may contribute to the onset of the disease. If you are overweight make strong efforts to decrease the amount of food you consume. Excess weight puts additional stress on your joints and increases the risk of hyperuricemia and gout. Avoid low carbohydrate type diets because they are high in protein and fat which can increase the amount of uric acid in the blood. Avoid or Limit Alcohol - Drinking too much alcohol increases the risk of hyperuremia because it interferes with the removal or uric acid from the body. Moderate Protein Intake - Smaller amounts of purines are found in all types of meat, fish and poultry products. It is generally recommended that meat, fish, and poultry be limited to no more than 6-8 ounces per day. Allergies As of Date: 12/27/2022 (No Known Allergies) Date Reviewed: 12/27/2022 Reviewed by: Kayla Adams - Fully Assessed Reason for Visit: Pain (foot) [760] Cmt: right foot and great toe pain x 2 days Primary Visit Diagnosis:Great toe pain, right [M79.674] Order(s):XR TOE AP/LAT/OBL RIGHT [[id number]] Order #: [id number]. #:[id number] predniSONE (DELTASONE) 10 mg tabletTake 4 tabs daily x 3 days, then 3 tabs x 3 days, 2 tabs x 3 days, then 1 tab x3 days with food.Disp: 30 tabletRfl: 0 Prescriptions as of 12/27/2022 - predniSONE (DELTASONE) 10 mg tablet Take 4 tabs daily x 3 days, then 3 tabs x 3 days, 2 tabs x 3 days, then 1 tab x3 days with food. - OTEZLA 30 mg tablet Problem List As Of Date: 12/27/2022 (None) Other instructions from your clinician: Low Purine Diet Recommen (more content not included)... Normal [facility] ([id number]) 1980 M Date Time Provider Department 12/27/22 TATIANA AMADO [facility] During your visit today, we recorded the following information about you: Tatiana Amado APRN.TRAIN ATTENDANT 12/27/2022 8:35 AM Signed Please notify that xray normal. Prednisone to pharmacy. Delia Yuan LPN 12/27/2022 8:41 AM Signed LEFT MESSAGE FOR PATIENT TO CALL BACK /Cecille Clark LPN, RN 12/27/2022 8:44 AM Signed Patient returned call and given provider's message below and patient verbalized understanding. Vania Bocanegra RN Allergies As of Date: 12/27/2022 (No Known Allergies) Date Reviewed: 12/27/2022 Reviewed by: Kayla Adams - Fully Assessed Reason for Visit: Results [95] Prescriptions as of 12/27/2022 - predniSONE (DELTASONE) 10 mg tablet Take 4 tabs daily x 3 days, then 3 tabs x 3 days, 2 tabs x 3 days, then 1 tab x3 days with food. - OTEZLA 30 mg tablet Problem List As Of Date: 12/27/2022 (None) Encounter Status:Closed by CECILLE BOCANEGRA on 12/27/22 [facility] XR TOE 3V AP/LAT/OBL RTon XR TOE 3V AP/LAT/OBL RT * * *Final Report* * * DATE OF EXAM: Dec 27 2022 8:12AM WOX [id number] - XR TOE 3V AP/LAT/OBL RT / PROCEDURE REASON: Great toe pain, right * * * * Physician Interpretation * * * * TITLE: XR TOE 3V AP/LAT/OBL RT CLINICAL INDICATION: No brain TECHNIQUE: 3 view radiographic study of the right great toe COMPARISON: None FINDINGS: No acute fracture or dislocation identified. No radiographic evidence of destructive osseous lesion. Joint spaces preserved. No radiopaque foreign body. IMPRESSION: No radiographic evidence of acute osseous abnormality Manager Entry: [facility] Transcribe Date/Time: Dec 27 2022 8:15A Dictated by : CIPRIANO DIAZ MD This examination was interpreted and the report reviewed and electronically signed by: CIPRIANO DIAZ MD on Dec 27 2022 8:16AM EST [id number] Normal [facility] XR Toes - right 3 Viewson IMPRESSION: No radiographic evidence of acute osseous abnormality Manager Entry: [facility] Transcribe Date/Time: Dec 27 2022 8:15A Dictated by : CIPRIANO DIAZ MD This examination was interpreted and the report reviewed and electronically signed by: CIPRIANO DIAZ MD on Dec 27 2022 8:16AM EST DIVISION OF RADIOLOGY * * *Final Report* * * DATE OF EXAM: Dec 27 2022 8:12AM WOX [id number] - XR TOE 3V AP/LAT/OBL RT / PROCEDURE REASON: Great toe pain, right * * * * Physician Interpretation * * * * TITLE: XR TOE 3V AP/LAT/OBL RT CLINICAL INDICATION: No brain TECHNIQUE: 3 view radiographic study of the right great toe COMPARISON: None FINDINGS: No acute fracture or dislocation identified. No radiographic evidence of destructive osseous lesion. Joint spaces preserved. No radiopaque foreign body. DIVISION [facility]OLOGY [facility] * * *Final Report* * * DATE OF EXAM: Dec 27 2022 8:12AM WOX [id number] - XR TOE 3V AP/LAT/OBL RT / PROCEDURE REASON: Great toe pain, right * * * * Physician Interpretation * * * * TITLE: XR TOE 3V AP/LAT/OBL RT CLINICAL INDICATION: No brain TECHNIQUE: 3 view radiographic study of the right great toe COMPARISON: None FINDINGS: No acute fracture or dislocation identified. No radiographic evidence of destructive osseous lesion. Joint spaces preserved. No radiopaque foreign body. IMPRESSION IMPRESSION: No radiographic evidence of acute osseous abnormality Manager Entry: [facility] Transcribe Date/Time: Dec 27 2022 8:15A Dictated by : CIPRIANO DIAZ MD This examination was interpreted and the report reviewed and electronically signed by: CIPRIANO DIAZ MD on Dec 27 2022 8:16AM EST [facility] Radiology Study observation (narrative) [facility] XR Toes - right 3 ViewsOrder ed By: Ccf Provider on 12-27-2022 [facility] CNOVon 12-10-2022 CNOV Office Visit (UCWSTR ) HASEEB DOVER ([id number]) 1980 M Date Time Provider Department 12/10/22 8:45 AM KATHLEEN STILES [facility] During your visit today, we recorded the following information about you: Temperature Pulse Respiration Blood pressure 97.8 degrees 68/minute 18/minute 125/86 Weight 93.4 kg Kathleen Stiles APRN.TRAIN ATTENDANT 12/10/2022 8:37 AM Signed CC: Patient presents with: Pain, Sinus: Head congestion, pain in ears and teeth x 10 days HPI: Haseeb Dover is a 42 year old male who [...] occur. Patient agreeable to treatment plan. Kathleen Stiles APRN.TRAIN ATTENDANT Allergies As of Date: 12/10/2022 (No Known Allergies) Date Reviewed: 12/10/2022 Reviewed by: Katerin Miller LPN - Fully Assessed Reason for Visit: Pain, Sinus [857] Cmt: Head congestion, pain in ears and teeth x 10 days Primary Visit Diagnosis:Rhinosinusitis [J32.9] Other Visit Diagnosis:Acute cough [R05.1] Order(s):amoxicillin-clavulanic acid (AUGMENTIN) 875-125 mg per tabletTake 1 tablet by mouth two times a day for 7 days.Disp: 14 tabletRfl: 0 predniSONE (DELTASONE) 20 mg tabletTake 2 tablets by mouth once daily for 5 days.Disp: 10 tabletRfl: 0 benzonatate (TESSALON PERLES) 100 mg capsuleTake 1 capsule by mouth three times a day as needed for up to 7 days.Disp: 21 capsuleRfl: 0 Prescriptions as of 12/10/2022 - amoxicillin-clavulanic acid (AUGMENTIN) 875-125 mg per tablet Take 1 tablet by mouth two times a day for 7 days. - benzonatate (TESSALON PERLES) 100 mg capsule Take 1 capsule by mouth three times a day as needed for up to 7 days. - OTEZLA 30 mg tablet - predniSONE (DELTASONE) 20 mg tablet Take 2 tablets by mouth once daily for 5 days. Problem List As Of Date: 12/10/2022 (None) Prescriptions ordered this encounter Disp Refills Start End AMOXICILLIN 875 MG-POTASSIUM CLAVULA* 14 t* 0 12/10/2022 12/17/2022 Route: ORAL Sig: Take 1 tablet by mouth two times a day for 7 days. PREDNISONE 20 MG TABLET 10 t* 0 12/10/2022 12/15/2022 Route: ORAL Sig: Take 2 tablets by mouth once daily for 5 days. BENZONATATE 100 MG CAPSULE 21 c* 0 12/10/2022 12/17/2022 Route: ORAL Sig: Take 1 capsule by mouth three times a day as needed for up to 7 days. Encounter Status:Closed by KATHLEEN STILES on 12/10/22 Normal [facility] Absolute lymphocyte counton 09-13-2021 Lymphocytes Auto (Unsp spec) [#/Vol] 1.64 10*3/uL 0.83-4.51 [facility] Work Phone: Basophil percentageon 2021 Basophils/100 WBC (Bld) 0.8 % 0-1 [facility] Work Phone: Bilirubin [Mass/Vol] 0.50 mg/dL 0.20-1.00 [facility] Work Phone: Comment on above: For patients on eltr ombopag therapy, use of Dimension [place] TBIL is not recommended. Chloride [Moles/Vol] 109 mmol/L 98-107 [facility] Work Phone: Cholesterol [Mass/Vol] 208 mg/dL <200 [facility] Work Phone: [phone] Comment on above: <200 mg/dL Desirable 200-240 mg/dL Borderline >240 mg/dL High Risk Eosinophils/100 WBC (Bld) 1.3 % 0-5 [facility] Work Phone: Glucose [Mass/Vol] 91 mg/dL 74-[address] [facility] Work Phone: Neutrophils (Bld) [#/Vol] 2.9 10*3/uL 2.0-7.7 [facility] Work Phone: [phone] Neutrophils/100 WBC (Bld) 55.5 % 47-70 [facility] Work Phone: Potassium [Moles/Vol] 4.4 mmol/L 3.5-5.1 [facility] Work Phone: [phone] Protein [Mass/Vol] 8.0 g/dL 6.4-8.[address] [facility] Work Phone: Sodium [Moles/Vol] 140 mmol/L 136-[address] [facility] Work Phone: [phone] Triglyceride [Mass/Vol] 350 mg/dL <199 [facility] Work Phone: [phone] Comment on above: The drugs N-Acetylcy steine and Metamizole may falsely depress this assay.Serum Triglycerides Reference Interval Normal <150 mg/dL Borderline high 150 - 199 mg/dL High 200 - 499 mg/dL Very High > or = 500 mg/dL WBC (Bld) [#/Vol] 5.3 10*3/uL 4.4-11.[address] [facility] Work Phone: [phone] Blood erythrocytes count (nu mber/volume)on 09-13-2021 RBC (Bld) [#/Vol] 5.40 10*6/uL 4.6-6.2 [facility] Work Phone: [phone] Blood hemoglobin measurement (mass/volume)on 09-13-2021 Hemoglobin (Bld) [Mass/Vol] 15.3 g/dL 13.0-16.5 [facility] Work Phone: Blood lymphocytes/100 leukoc yteson 09-13-2021 Lymphocytes/100 WBC (Bld) 31.2 % 19-41 [facility] Work Phone: Blood monocytes/100 leukocyt eson 09-13-2021 Monocytes/100 WBC (Bld) 11.0 % 0-10 [facility] Work Phone: Blood platelet mean volumeon 09-13-2021 Platelet mean volume (Bld) [Entitic vol] 10.9 fL 6.2-12.0 [facility] Work Phone: [phone] Determination of erythrocyte mean corpuscular volume (MCV)on 09-13-2021 MCV (RBC) [Entitic vol] 86.3 fL 80-94 [facility] Work Phone: Hematocrit Auto (Bld) [Volum e fraction]on 09-13-2021 Hematocrit (Bld) [Volume fraction] 46.6 % 40-54 [facility] Work Phone: [phone] Laboratory - Chemistry and C hemistry - challengeon 09-13-2021 ALP [Catalytic activity/Vol] 74 U/L 45-117 [facility] Work Phone: [phone] ALT [Catalytic activity/Vol] 30 U/L 16-61 [facility] Work Phone: [phone] CO2 [Moles/Vol] 26.0 mmol/L 21.0-32.0 [facility] Work Phone: [phone] Globulin (S) [Mass/Vol] 3.9 g/dL 2.2-4.2 [facility] Work Phone: [phone] Urea nitrogen/Creatinin e [Mass ratio] 19.6 mg/mg 10-20 [facility] Work Phone: [phone] Laboratory - Hematology and Cell countson 09-13-2021 Erythrocyte distribution width (RBC) [Entitic vol] 40.8 fL 35.1-43.9 [facility] Work Phone: Erythrocyte distribution width (RBC) [Ratio] 13.1 % 11.6-14.6 [facility] Work Phone: Immature granulocytes/100 WBC (Bld) 0.200 % 0.0-0.9 [facility] Work Phone: Comment on above: IG% - Immature Granu locytes (promyelocytes, myelocytes and metamyelocytes) > 1% indicates that a LEFT SHIFT is Present. MCH (RBC) [Entitic mass] 28.3 pg 27.0-32.0 [facility] Work Phone: Nucleated RBC/100 WBC (Bld) [Ratio] 0 % 0-5 [facility] Work Phone: MCHC Auto (RBC) [Mass/Vol]on 09-13-2021 MCHC (RBC) [Mass/Vol] 32.8 g/dL 32-36 [facility] Work Phone: No Panel Informationon 09-13 Estimated GFR (MDRD) Amer 92 mL/min >60 [facility] Work Phone: Comment on above: GFR Calc Estimated GFR (MDRD) Non-Af Amer 76 mL/min >60 [facility] Work Phone: Comment on above: Non- GFR Calc Thyroid Stimulating Hormone (TSH) 1.02 uIU/mL 0.358-3.74 [facility] Work Phone: Platelets bldon 09-13-2021 Platelets (Bld) [#/Vol] 236 10*3/uL 150-450 [facility] Work Phone: Serum or plasma albumin jany urement (mass/volume)on 09-13-2021 Albumin [Mass/Vol] 4.1 g/dL 3.2-5.[address] [facility] Work Phone: Serum or plasma albumin/glob ulin mass ratioon 09-13-2021 Albumin/Globulin [Mass ratio] 1.1 {ratio} 0.9-2.4 [facility] Work Phone: Serum or plasma calcium jany urement (mass/volume)on 09-13-2021 Calcium [Mass/Vol] 9.4 mg/dL 8.5-10.[address] [facility] Work Phone: Serum or plasma cholesterol in HDL measurement (mass/volume)on 09-13-2021 Cholesterol in HDL [Mass/Vol] 32 mg/dL >40 [facility] Work Phone: Comment on above: The drugs N-Acetylcy steine and Metamizole may falsely depress this assay. Reference Range HDL <40 mg/dL Low HDL Cholesterol HDL >or= 60 mg/dL High HDL Cholesterol Serum or plasma cholesterol in VLDL measurement (mass/volume)on 09-13-2021 Cholesterol in VLDL [Mass/Vol] 70 mg/dL 5-40 [facility] Work Phone: Serum or plasma creatinine m easurement (mass/volume)on 09-13-2021 Creatinine [Mass/Vol] 1.12 mg/dL 0.70-1.30 [facility] Work Phone: Comment on above: The validity of the calculated GFR & GFRAA in patients over 70 years has not been determined. Clinical correlation is essential. Serum or plasma low density lipoprotein (LDL) cholesterol measurement (mass/volume)on 09-13-2021 Cholesterol in LDL [Mass/Vol] 106 mg/dL 0-130 [facility] Work Phone: Serum or plasma urea nitroge n measurement (mass/volume)on 09-13-2021 Urea nitrogen [Mass/Vol] 22 mg/dL 7-18 [facility] Work Phone: Thin prep Papanicolaou smear with manual screeningon 09-13-2021 Thin prep Papanicolaou smear with manual screening 15 U/L 15-37 [facility] Work Phone: Thin prep Papanicolaou smear with manual screening 5 5-15 [facility] Work Phone: Whole blood hemoglobin A1c/t otal hemoglobin ratio (mass fraction)on 09-13-2021 HbA1c (Bld) [Mass fraction] 5.0 % 3.8-5.6 [facility] Work Phone: Comment on above: Normal < 5.7 % Predi abetic 5.7 - 6.4 % Diabetic >or= 6.5 % Please note range changes. Vital Signs Date Time Vital Sign Value Performing Clinician Petrona mauricio 12-10-2022 08:27-0400 Body temperature 97.81 [degF] Kathleen Stiles APRN.TRAIN ATTENDANT Work Phone: [facility] 12-10-2022 08:27-0400 Body weight 93.44 kg Kathleen Stiles APRN.TRAIN ATTENDANT Work Phone: [facility] 12-10-2022 08:27-0400 Diastolic blood pressure 86 mm[Hg] Kathleen Stiles APRN.TRAIN ATTENDANT Work Phone: [facility] 12-10-2022 08:27-0400 Heart rate 68 /min Kathleen Stiles APRN.TRAIN ATTENDANT Work Phone: [facility] 12-10-2022 08:27-0400 Respiratory rate 18 /min Kathleen Stiles APRN.TRAIN ATTENDANT Work Phone: [facility] 12-10-2022 08:27-0400 SaO2% (BldA) [Mass fraction] 96 % Kathleen Stiles APRN.TRAIN ATTENDANT Work Phone: [facility] 12-10-2022 08:27-0400 Systolic blood pressure 125 mm[Hg] Kathleen Stiles APRN.TRAIN ATTENDANT Work Phone: [facility] Encounters Encounter Date Encounter Type Care Provider Facility Start: 05-31-2024 End: 05-31-2024 ambulatory Shelley ROBLERO Work Phone: [facility] Work Phone: Start: 05-31-2024 End: 05-31-2024 Patient encounter procedure Latrice Aguilar PA-C [facility] Work Phone: Start: 05-31-2024 End: 05-31-2024 ambulatory Latrice STALLWORTH Facility:[facility] Start: 04-30-2024 End: 04-30-2024 ambulatory Shelley Little [employer]-C Work Phone: [facility] Work Phone: Start: 04-30-2024 End: 04-30-2024 Patient encounter procedure Latrice STALLWORTH-C -[facility] Work Phone: Start: 04-30-2024 End: 04-30-2024 ambulatory Latrice STALLWORTH Facility:[facility] Start: 11-20-2023 End: 11-20-2023 ambulatory Shelley Little [employer]ER[employer] [place] Start: 06-19-2023 End: 06-19-2023 ambulatory [facility] Work Phone: Start: 06-19-2023 End: 06-19-2023 Patient encounter procedure [facility] Start: 06-19-2023 End: 06-19-2023 ambulatory Shelley Little [employer]ER[employer] Facility:[facility] Start: 05-05-2023 End: 05-05-2023 ambulatory [facility] Work Phone: Start: 05-05-2023 End: 05-05-2023 Patient encounter procedure [facility] Start: 02-15-2023 End: 02-15-2023 ambulatory [facility] Facility:[facility] Start: 12-27-2022 Telephone encounter Tatiana sewell APRN.CNP Work Phone: [facility] Comment on above: Results Start: 12-27-2022 End: 12-27-2022 ambulatory [facility] Facility:[facility] Start: 12-27-2022 End: 12-27-2022 Subsequent hospital visit by physician [facility] Work Phone: Radiology Comment on above: Great toe pain, righ t [M79.674] Start: 12-10-2022 End: 12-10-2022 ambulatory [facility] Facility:[facility] Start: 12-10-2022 End: 12-10-2022 Patient encounter procedure Kathleen Stiles APRN.TRAIN ATTENDANT Work Phone: [facility] Comment on above: Rhinosinusitis (Prim tee Dx); Acute cough Start: 09-13-2021 End: 09-13-2021 Patient encounter procedure [facility], [facility] Procedures Date Procedure Procedure Detail Performing Clinician Start: 12-27-2022 Radex toe minimum 2 views Tatiana Amado APRN.TRAIN ATTENDANT Work Phone: Plan of Treatment Date Care Activity Detail Author Start: 09-14-2031 Urine microalbumin profile DTa P,Tdap,Td Vaccine (3 - Td or Tdap) [facility] Start: 10-29-2023 Covid-19 Vaccine ( season) Covid-19 Vaccine ( season) [facility] Start: 10-29-2023 Influenza vaccination Influenza Vacc ine (#1) [facility] Start: 2023 Diabetes Screening Diabetes Screenin g [facility] Start: 2023 Screening for malign ant neoplasm of colon [facility] Start: 10-28-2022 Covid-19 Vaccine ( season) Covid-19 Vaccine () [facility] Start: 10-28-2022 Influenza vaccination Influenza Vacc ine (#1) [facility] Start: 02-27-2022 Depression Assessment Depression Ass essment [facility] Start: 2013 Lipid 1996 panel - S desean or Plasma Lipid Screening [facility] Start: 2013 Lipid panel Lipid Screening [facility] Start: 1997 Hepatitis B Vaccine (1 of 3 - 19+ 3-dose series) Hepatitis B Vaccine (1 of 3 - 19+ 3-dose series) [facility] Start: 1997 Shingrix Vaccine (1 of 2) Brown grix Vaccine (1 of 2) [facility] Start: 1997 Urine microalbumin profile DTa P,Tdap,Td Vaccine (1 - Tdap) [facility] Start: 1996 Anxiety Screening Anxiety Screening [facility] Start: 1996 Depression Screening Depression Scre ening [facility] Start: 1996 Hepatitis C Screening Hepatitis C [facility] Start: 1996 Hepatitis C screening Hepatitis C [facility] Start: 1996 HIV Screening HIV Screening [facility] Start: 1996 HIV screening HIV Screening [facility] Start: 1984 Pneumococcal vaccination [facility] Start: 1978 Hepatitis B Vaccine (1 of 3 - 3-dose series) Hepatitis B Vaccine (1 of 3 - 3-dose series) [facility] Immunizations Immunization Date Immunization Notes Care Provider Fa abel 11-11-2020 influenza virus vaccine, unspecified formulation Kathleen Stiles APRN.TRAIN ATTENDANT Work Phone: [facility] 05-21-2020 Covwv (Moderna) [facility] 05-17-2014 tetanus toxoid, redu isis diphtheria toxoid, and acellular pertussis vaccine, adsorbed [facility] Payers Date Payer Category Payer Self-pay [id number] 2018 Unknown MMO [employer] PPO [id number] 2018-Present [phone] [address] [place] [address] PPO [id number] 2018 Unknown [id number] 2012 Unknown [id number] Unknown [id number] Unknown [id number] Unknown [id number] Social History Date Type Detail Facility Start: 05-17-2014 Tobacco smoking stat us NHIS Unknown if ever smoked [facility] Start: 1980 Sex Assigned At Male W [facility] Start: 12-10-2022 End: 11-20-2023 Tobacco smoking status NHIS Never smoked tobacco [facility] Start: 12-10-2022 Tobacco use and exposure Smokeless tobacco non-user [facility] Start: 12-10-2022 End: 12-27-2022 Alcohol intake Current non-drinker of alcohol (finding) [facility] Start: 12-10-2022 End: 12-27-2022 History of Social function [facility] Start: 12-10-2022 End: 12-27-2022 Tobacco use panel [facility] Start: 1980 Sex Assigned At Not on file C [facility] Start: 05-10-2024 End: 06-03-2024 Sex Male (finding) [facility] Clinical Notes 12-10-2022 to 02-15-2023 Telephone Encounter - Cecille Bocanegra RN - 12/27/2022 8:44 AM EDTTelephone Encounter - Delia Yuan LPN - 12/27/2022 8:41 AM EDTLiliana Ca RT(R) - 12/27/2022 8:00 AM EDT Note Date & Type Note Facility 02-15-2023 Note HNO ID: [id number] Author: Ashlyn Garcia APRN.TRAIN ATTENDANT Service: ? Author Type: Nurse Practitioner Type: Progress Notes Filed: 02/15/2023 4:53 PM Note Text: Subjective Sinus Problem Associated symptoms include congestion, coughing and headaches. Pertinent negatives include no chills, fever or sore throat. Haseeb Dover is a 42 year old male who [...] Discussed expected course of illness Ashlyn Garcia APRN.TRAIN ATTENDANT [facility] 12-27-2022 Note HNO ID: [id number] Author: Tatiana Amado APRN.TRAIN ATTENDANT Service: ? Author Type: Nurse Practitioner Type: Progress Notes Filed: 12/27/2022 9:54 AM Note Text: Subjective HPI HPI Haseeb Dover is a 42 year old male who [...] - PREDNISONE 10 MG TABLET Tatiana Amado APRN.CNP [facility] 12-27-2022 Note HNO ID: [id number] Author: Liliana Ca RT(R) Service: Radiology Author Type: Technologist Type: Progress Notes Filed: 12/27/2022 8:12 AM Note Text: Radiology Service Progress Note PATIENT NAME: Haseeb Dover DATE OF SERVICE: December 27, 2022 TIME: [...] RT Mila(R) December 27, 2022 8:01 AM [facility] 12-27-2022 Miscellaneous Notes Formattin g of this note might be different from the original. Patient returned call and given provider's message below and patient verbalized understanding. Vania Bocanegra RN LEFT MESSAGE FOR PATIENT TO CALL BACK /SHERRY FAN Please notify that xray normal. Prednisone to pharmacy. documented in this encounter [facility] 12-27-2022 History of Presen t illness Narrative Radiology Service Progress Note PATIENT NAME: Haseeb Dover DATE OF SERVICE: December 27, 2022 TIME: [...] RT Mila(R) December 27, 2022 8:01 AM documented in this encounter [facility] 12-10-2022 Note HNO ID: [id number] Author: Kathleen Stiles APRN.TRAIN ATTENDANT Service: ? Author Type: Nurse Practitioner Type: Progress Notes Filed: 12/10/2022 8:37 AM Note Text: CC: Patient presents with: Pain, Sinus: Head congestion, pain in ears and teeth x 10 days HPI: Haseeb Dover is a 42 year old male who [...] occur. Patient agreeable to treatment plan. Kathleen Stiles APRN.[facility] 12-10-2022 History of Presen t illness Narrative CC: Patient presents with: Pain, Sinus: Head congestion, pain in ears and teeth x 10 days HPI: Haseeb Dover is a 42 year old male who [...] occur. Patient agreeable to treatment plan. Kathleen Stiles APRN.TRAIN ATTENDANT documented in this encounter [facility] Evaluation note No assessment inform ation available [facility] Work Phone: Evaluation note Diagnosis Rhinosinusitis- Primary Unspecified sinusitis (chronic) Acute cough [facility] (narrative)No reason for referral information availableOhio[facility] Work Phone: Reason for visit Narrative* Diagnostic Procedure Only (Urgent) - Closed Specialty Diagnoses / Procedures Referred By Contac t Referred To Contact XR IMAGING Diagnoses Great toe pain, right Procedures XR TOE AP/LAT/OBL RIGHT RADEX TOE MINIMUM 2 VIEWS Tatiana Amado APRN.[address] [place] [address] [place] [id number] Referral ID Status Reason Start Date Expiration Date V isits Requested Visits Authorized [id number] Closed Auto-Generate d Referral 12/27/2022 01/26/2024 1 1 [facility] Summary Purpose Family History No Family History Records FoundNo Family History Records Found [facility] Directives No Advanced Directives Records FoundNo Advanced Directives Records Found Chief Complaint and Reason for Visit Chief Complaint Admit Date SKIN April 30, 2024 3:21 pm Chief Complaint Admit Date SKIN April 30, 2024 3:21 pm SKIN May 31, 2024 7:44 am Additional Source Comments Goals (unrecognized section and content) Goals may be documented in a n alternate sectionGoals may be documented in an alternate sectionGoals may be documented in an alternate sectionGoals may be documented in an alternate sectionGoals may be documented in an alternate section Source Comments (unrecognize d section and content) In the event this informatio n is protected by the Federal Confidentiality of Alcohol and Drug Abuse Patient Records regulations: The Federal rules restrict any use of the information to criminally investigate or prosecute any alcohol or drug abuse patient.[facility] the event this information is protected by the Federal Confidentiality of Alcohol and Drug Abuse Patient Records regulations: The Federal rules restrict any use of the information to criminally investigate or prosecute any alcohol or drug abuse patient.[facility] the event this information is protected by the Federal Confidentiality of Alcohol and Drug Abuse Patient Records regulations: The Federal rules restrict any use of the information to criminally investigate or prosecute any alcohol or drug abuse patient.[facility] Reason for Visit (unrecogniz ed section and content) Reason Comments Pain, Sinus Head congestion, luis antonio n in ears and teeth x 10 days Reason Comments Results Care Teams (unrecognized sec tion and content) Software Program Manager Relationship Specialty Start Date End Date Mary Flores ([facility]) PCP - General 12/27/22 Team Status: Active Member Role Status Dates Dr. Norm Mayen MD Family Provider Active Shelley Little COMMERCIAL FISHERMAN, COMMERCIAL FISHERMAN-C Primary Care Provider Active Team Status: Inactive Member Role Status Dates Shelley Little NP, COMMERCIAL FISHERMAN-C Primary Care Provider Active Dr. Lupe Willoughby MD Attending Provider Active Software Program Manager Relationship Specialty Start Date End Date Mary Flores ([facility]) PCP - General 12/27/22 Team Status: Inactive Member Role Status Dates Shleley Little NP, COMMERCIAL FISHERMAN-C Primary Care Provider Active Start: April 30, 2024 End: April 30, 2024 Latrice STALLWORTH PA-C Attending Provider Active S tart: April 30, 2024 End: April 30, 2024 Latrice STALLWORTH PA-C Referring Provider Active S tart: April 30, 2024 End: April 30, 2024 Team Status: Inactive Member Role Status Dates Shelley Little NP, COMMERCIAL FISHERMAN-C Primary Care Provider Active Start: May 31, 2024 End: May 31, 2024 Latrice STALLWORTH PA-C Attending Provider Active S tart: May 31, 2024 End: May 31, 2024 Latrice STALLWORTH PA-C Referring Provider Active S tart: May 31, 2024 End: May 31, 2024 (unrecognized sect ion and content) No Status Records FoundNo Status Records Found INFORMATION SOURCE (unrecogn ized section and content) DATE CREATED AUTHOR 02/17/2023 [facility] DATE CREATED AUTHOR 'S LIYAH ATION 06/04/2024 [facility] FOR RECORDS PERTAINING TO PATIENTS WHO ARE [...] BE BASED ON THE PRIMARY CLINICAL RECORDS. [facility] [employer] [facility]. provides no warranty or guarantee of the accuracy or completeness of information in this document.
== END | disposition home or self-care (01) ==
LOC: MFPLAB 09:01
PROVIDERS: PCP Family Medicine; Referring Provider Family Medicine; Visit Provider Family Medicine
DX: Z00.00 Encounter for general adult medical examination without abnormal findings (principal); Z13.1 Encounter for screening for diabetes mellitus; Z13.29 Encounter for screening for other suspected endocrine disorder; Z13.220 Encounter for screening for lipoid disorders
CPT/HCPCS: 36415; 80053; 80061; 84443; 85025

== ENCOUNTER → 2024-09-06 | Outpatient (CLI) | payer OTHER, SELFPAY ==
[2024-09-11 08:08] LABS: QNTFERON TB Mitogen Value > 10.00 IU/mL (.); QNTFERON TB Nil Value > 10.00 IU/mL (.); QNTFERON TB1+ Ag Value > 10.00 IU/mL (.); QNTFERON TB2+ Ag Value > 10.00 IU/mL (.); QNTIFERON TB Positive Criteria Indeterminate (Negative)
== END | disposition home or self-care (01) ==
LOC: MFPLAB 08:22
PROVIDERS: PCP Family Medicine; Visit Provider Physician Assistant
DX: Z79.899 Other long term (current) drug therapy (principal)
CPT/HCPCS: 36415; 86480

== ENCOUNTER → 2025-01-24 | Outpatient (CLI) | payer OTHER, SELFPAY ==
--- NOTE | 2025-01-24 09:35 | RAD_ITS ---
PROCEDURE: CHEST PA AND LATERAL 01/24/2025 REASON FOR EXAM: TEST TECHNIQUE: Procedure Code: RADCXR Modality: DX Procedure: CHEST PA AND LATERAL COMPARISON: None FINDINGS: The lungs are clear. The heart borders mediastinum and pulmonary vascular pattern are normal. The upper abdominal bowel gas pattern is normal. There are no bony abnormalities of the chest. RAD/Chest PA and Lateral IMPRESSION: No evidence of acute cardiopulmonary pathology. Reading Location: [id number]
--- OUTSIDE RECORDS SUMMARY | 2025-01-24 09:49 | XMS RPT_ITS | CCD ---
Author Organization [facility] Care Team Providers Care Surgical Instrument Repair Specialist Name Role Phone Unavailable Primary Care Provider Unavailabl e Mary Flores ([facility]) Primary Care Provider Sana vailable TATIANA AMADO Referring Unavailable Mary Flores ([facility]) Primary Care Provider Sana vailable Sidney LETTER[employer] PRINTING MACHINIST-C, Shelley Primary Care Provider Lauren PA-C, Latrice Attending Provider Lauren PA-C, Latrice Referring Provider Sena Flanagan MD Primary Care Provider [phone] Sena Flanagan MD Attending Provider Sena Flanagan MD Referring Provider Sidney [employer] PRINTING MACHINIST-C, Shelley Primary Care Provider [place] PA-C, Latrice Attending Provider [place] PA-C, Latrice Referring Provider Sena Flanagan Primary Care Unavailable Sena Flanagan Attending Unavailable Sena Flanagan Referring Unavailable Lauren PA, Latrice Attending Unavailable Sena Flanagan Primary Care Unavailable Lauren PA, Latrice Attending Unavailable [place] PA, Latrice Referring Unavailable Sidney [employer] PRINTING MACHINIST, Shelley Primary Care Unavailable Sidney [employer] PRINTING MACHINIST, Shelley Primary Care Unavailable Sidney [employer] PRINTING MACHINIST, Shelley Referring Unavailable Brian Leon Attending Unavailable Lauren PA, Latrice Attending Unavailable [place] PA, Latrice Referring Unavailable Sidney [employer] PRINTING MACHINIST, Shelley Primary Care Unavailable Medications Current Medications [...] Comment on above: [facility] for 7 days. apremilast 30 mg oral tablet (11 sources) Start: 11-20-2023 take 1 tablet by [...] on above: Take 1 capsule by mo [facility] three times a day as needed for [...] with food. tobramycin 3 mg/ml ophthalmic solution (4 sources) Aminoglycoside Antibacterial Start: 11-20-2023 Tobramycin 0.3 % drops Active 1 NMA OPHTHALMIC Q2H 5 0 November 20, 2023 12:00am to affected eye while awake first 24 hours, then 3x/day on days 2-5 Problems Problem Classification Problem Date Documented Da te Episodic/Chronic Other aftercare (1 source) Other joint terminal attack controller (current) drug therapy; Translations: [Other joint terminal attack controller (current) drug therapy] Onset: 09-11-2024 Episodic Other inflammatory condition of skin (1 source) Psoriasis vulgaris; Translations: [Psoriasis vulgaris] Onset: 06-03-2024 Chronic Other lower respiratory disease (1 source) Cough; Translations: [Acute cough] 12-10-2022 Episodic Other upper respiratory infections (1 source) Chronic sinusitis, unspecified; Translations: [Unspecified sinusitis (chronic)] 12-10-2022 Chronic Results Test Name Value Interpretation Reference Range Facility Quantiferon TB-Gold+on 09-11 QFT MITOGEN BONNIE > 10.00 Normal . [facility] Comment on above: Performed By: #### L 3400.8000 #### [facility] [address] [facility]. [place], [place], [id number] QFT NIL VALUE > 10.00 Normal . [facility] Comment on above: Performed By: #### L 3400.8000 #### [facility] [address] [facility] [address] [facility] [place], [place], [address] QFT TB GOLD+ Comment Normal . [facility] Comment on above: Result Comment: Surinder tiFERON-TB [...] test. Performed By: #### L 3400.8000 #### [facility] [address] [place], [place], [id number] QFT TB POS CRIT Indeterminate Normal Negative [facility] Comment on above: Result Comment: Nil (negative [...] interferon gamma. Chemiluminescence immunoassay methodology Performed at: [facility] [employer] [id number] Drapery Rod Assembler: Maverick Celeste PhD, Phone: [phone] Performed By: #### L 3400.8000 #### [facility] [address] [place], [address] QFT TB1+ AG BONNIE > 10.00 Normal . [facility] Comment on above: Performed By: #### L 3400.8000 #### [facility] [address] [place], [address] QFT TB2+ AG BONNIE > 10.00 Normal . [facility] Comment on above: Performed By: #### L 3400.8000 #### [facility] [address] [place], [address] Qualitative QuantiFERON-TB g old in tube testOrdered By: Latrice Aguilar on 09-06-2024 M. tuberculosis tuberculin stim IFN-g Ql (Bld) > 10.00 IU/mL . [facility] Absolute lymphocyte countOrd ered By: Sena Flanagan on 08-08-2024 Lymphocytes Auto (Unsp spec) [#/Vol] 1.55 10*3/uL 0.83-4.51 [facility] Absolute neutrophil countOrd ered By: Sena Flanagan on 08-08-2024 Neutrophils (Bld) [#/Vol] 2.3 10*3/uL 2.0-7.7 [facility] Anion gap in Serum or Plasma Ordered By: Sena Flanagan on 08-08-2024 Anion gap [Moles/Vol] 12 mmol/L 5- [facility] Automated lymphocyte count a s percentage of total leukocytesOrdered By: Sena Flanagan on 08-08-2024 Lymphocytes/100 WBC Auto (Unsp spec) 34.1 % 19- [facility] BUN/creatinine ratioOrdered By: Sena Flanagan on 08-08-2024 Urea nitrogen/Creatinine [Mass ratio] 18.2 mg/mg 10- [facility] Basophil percentageOrdered B y: Sena Flanagan on 08-08-2024 Basophils/100 WBC (Bld) 0.9 % 0- [facility] Bilirubin, totalOrdered By: Sena Pardoke on 08-08-2024 Bilirubin [Mass/Vol] 0.78 mg/dL 0.00-1.30 [facility] CBC W/Diff, Automatedon 07-28 Absolute Lymph 1.55 X10 3/uL Normal 0.83-4.51 [facility] Comment on above: Order Comment: Order Date: 08/08/24 Order Info: 0184-1 - CBCD Performed By: #### L 100.0100, L500.4100, L500.4050, L501.9520 #### [facility] [address] [place], [address] Absolute Neut 2.3 X10 3/uL Normal 2.0-7.7 [facility] Comment on above: Order Comment: Order Date: 08/08/24 Order Info: 0184-1 - CBCD Performed By: #### L 100.0100, L500.4100, L500.4050, [id number] #### [facility] [address] [place], [address] Basophils/100 WBC (Bld) 0.9 % Normal 0-1 [facility] Comment on above: Order Comment: Order Date: 08/08/24 Order Info: 0184-1 - CBCD Performed By: #### L 100.0100, L500.4100, L500.4050, [id number] #### [facility] [address] [place], [address] Eosinophils/100 WBC (Bld) 1.3 % Normal 0-5 [facility] Comment on above: Order Comment: Order Date: 08/08/24 Order Info: 0184-1 - CBCD Performed By: #### L 100.0100, L500.4100, L500.4050, [id number] #### [facility] [address] [place], [address] Erythrocyte distribution width (RBC) [Ratio] 12.7 % Normal 11.6-14.6 [facility] Comment on above: Order Comment: Order Date: 08/08/24 Order Info: 0184-1 - CBCD Performed By: #### L 100.0100, L500.4100, L500.4050, [id number] #### [facility] [address] [place], [address] Hematocrit (Bld) [Volume fraction] 44.0 % Normal 40-54 [facility] Comment on above: Order Comment: Order Date: 08/08/24 Order Info: 018-1 - CBCD Performed By: #### L 100.0100, L500.4100, L500.4050, [id number] #### [facility] [address] [place], [address] Hemoglobin (Bld) [Mass/Vol] 14.8 g/dL Normal 13.0-16.5 [facility] Comment on above: Order Comment: Order Date: 08/08/24 Order Info: 0184-1 - CBCD Performed By: #### L 100.0100, L500.4100, L500.4050, [id number] #### [facility] [address] [place], [address] IG% 0.200 Normal 0.0-0.9 [facility] Comment on above: Order Comment: Order Date: 08/08/24 Order Info: 0184- - CBCD Result Comment: IG% - Immature Granulocytes (promyelocytes, myelocytes and metamyelocytes) > 1% indicates that a LEFT SHIFT is Present. Performed By: #### L 100.0100, L500.4100, L500.4050, [id number] #### [facility] [address] [place], [address] Lymphocytes/100 WBC (Bld) 34.1 % Normal 19-41 [facility] Comment on above: Order Comment: Order Date: 08/08/24 Order Info: 0184- - CBCD Performed By: #### L 100.0100, L500.4100, L500.4050, [id number] #### [facility] [address] [place], [address] MCH (RBC) [Entitic mass] 29.0 pg Normal 27.0-32.0 [facility] Comment on above: Order Comment: Order Date: 08/08/24 Order Info: 0184- - CBCD Performed By: #### L 100.0100, L500.4100, L500.4050, [id number] #### [facility] [address] [place], [address] MCHC (RBC) [Mass/Vol] 33.6 g/dL Normal 32-36 [facility] Comment on above: Order Comment: Order Date: 08/08/24 Order Info: 0184- - CBCD Performed By: #### L 100.0100, L500.4100, L500.4050, [id number] #### [facility] [address] [place], [address] MCV (RBC) [Entitic vol] 86.3 fL Normal 80-94 [facility] Comment on above: Order Comment: Order Date: 08/08/24 Order Info: 0184-1 - CBCD Performed By: #### L 100.0100, L500.4100, L500.4050, [id number] #### [facility] [address] [place], [address] Monocytes/100 WBC (Bld) 12.1 % High 0-10 [facility] Comment on above: Order Comment: Order Date: 08/08/24 Order Info: 018-1 - CBCD Performed By: #### L 100.0100, L500.4100, L500.4050, [id number] #### [facility] [address] [place], [address] Neutrophils/100 WBC (Bld) 51.4 % Normal 47-70 [facility] Comment on above: Order Comment: Order Date: 08/08/24 Order Info: 018- - CBCD Performed By: #### L 100.0100, L500.4100, L500.4050, [id number] #### [facility] [address] [place], [address] Nucleated RBC (Bld) [#/Vol] 0 10*3/uL Normal 0-5 [facility] Comment on above: Order Comment: Order Date: 08/08/24 Order Info: 018- - CBCD Performed By: #### L 100.0100, L500.4100, L500.4050, [id number] #### [facility] [address] [place], [address] Platelet mean volume (Bld) [Entitic vol] 10.8 fL Normal 6.2-12.0 [facility] Comment on above: Order Comment: Order Date: 08/08/24 Order Info: 0184-1 - CBCD Performed By: #### L 100.0100, L500.4100, L500.4050, [id number] #### [facility] [address] [place], [address] Platelets (Bld) [#/Vol] 209 10*3/uL Normal 150-450 [facility] Comment on above: Order Comment: Order Date: 08/08/24 Order Info: 0184-1 - CBCD Performed By: #### L 100.0100, L500.4100, L500.4050, [id number] #### [facility] [address] [place], [address] RBC (Bld) [#/Vol] 5.10 10*6/uL Normal 4.6-6.2 [facility] Comment on above: Order Comment: Order Date: 08/08/24 Order Info: 0184-1 - CBCD Performed By: #### L 100.0100, L500.4100, L500.4050, [id number] #### [facility] [address] [place], [address] RDW SD 39.9 fl Normal 35.1-43.9 [facility] Comment on above: Order Comment: Order Date: 08/08/24 Order Info: 0184- - CBCD Performed By: #### L 100.0100, L500.4100, L500.4050, [id number] #### [facility] [address] [place], [address] WBC (Bld) [#/Vol] 4.6 10*3/uL Normal 4.4-11.0 [facility] Comment on above: Order Comment: Order Date: 08/08/24 Order Info: 0184-1 - CBCD Performed By: #### L 100.0100, L500.4100, L500.4050, [id number] #### [facility] [address] [place], [address] Calculated very low density lipoprotein (VLDL) cholesterol measurementOrdered By: Sena Flanagan on 08-08-2024 Calculated very low density lipoprotein (VLDL) cholesterol measurement 60 mg/dL High 5-40 [facility] Carbon dioxide, total [Moles /volume] in Central venous bloodOrdered By: Sena Flanagan on 08-08-2024 CO2 [Moles/Vol] 23.1 mmol/L 21.0-32.0 [facility] Chloride assayOrdered By: Jay Flanagan on 08-08-2024 Chloride [Moles/Vol] 105 mmol/L 98-108 [facility] Comprehensive Metabolic Prof ilon 08-08-2024 Albumin [Mass/Vol] 4.4 g/dL Normal 3.5-5.0 [facility] Comment on above: Order Comment: Order Date: 08/08/24 Order Info: 0786- - CMP Order Info: [id number] - LIPID Order Info: 3013 - TSH Performed By: #### L 100.0100, L500.4100, L500.4050, [id number] #### [facility] [address] [place], [address] Albumin/Globulin [Mass ratio] 1.5 {ratio} Normal 0.9-2.4 [facility] Comment on above: Order Comment: Order Date: 08/08/24 Order Info: 0786- - CMP Order Info: [id number] - LIPID Order Info: 3013 - TSH Performed By: #### L 100.0100, L500.4100, L500.4050, [id number] #### [facility] [address] [place], [address] ALK PHOS 74 U/L Normal 40-129 [facility] Comment on above: Order Comment: Order Date: 08/08/24 Order Info: 0786-1 - CMP Order Info: [id number] - LIPID Order Info: [id number] - TSH Performed By: #### L 100.0100, L500.4100, L500.4050, [id number] #### [facility] [address] [place], [address] ALT [Catalytic activity/Vol] 19 U/L Normal <=46 [facility] Comment on above: Order Comment: Order Date: 08/08/24 Order Info: 0786-1 - CMP Order Info: [id number] - LIPID Order Info: 3 - TSH Performed By: #### L 100.0100, L500.4100, L500.4050, [id number] #### [facility] [address] [place], [address] AST [Catalytic activity/Vol] 20 U/L Normal <=37 [facility] Comment on above: Order Comment: Order Date: 08/08/24 Order Info: 785- - CMP Order Info: - LIPID Order Info: [id number] - TSH Performed By: #### L 100.0100, L500.4100, L500.4050, [id number] #### [facility] [address] [place], [address] Bilirubin [Mass/Vol] 0.78 mg/dL Normal 0.00-1.30 [facility] Comment on above: Order Comment: Order Date: 08/08/24 Order Info: 785-02 - CMP Order Info: - LIPID Order Info: [id number] - TSH Performed By: #### L 100.0100, L500.4100, L500.4050, [id number] #### [facility] [address] [place], [address] BUN/CRE 18.2 RATIO Normal 10-20 [facility] Comment on above: Order Comment: Order Date: 08/08/24 Order Info: 785-02 - CMP Order Info: [id number] - LIPID Order Info: 3015-04 - TSH Performed By: #### L 100.0100, L500.4100, L500.4050, [id number] #### [facility] [address] [place], [address] Calcium [Mass/Vol] 9.7 mg/dL Normal 7.6-11.0 [facility] Comment on above: Order Comment: Order Date: 08/08/24 Order Info: 0786-1 - CMP Order Info: [id number] - LIPID Order Info: 3 - TSH Performed By: #### L 100.0100, L500.4100, L500.4050, [id number] #### [facility] [address] [place], [address] Chloride [Moles/Vol] 105 mmol/L Normal 98-108 [facility] Comment on above: Order Comment: Order Date: 08/08/24 Order Info: 785-1 - CMP Order Info: [id number] - LIPID Order Info: 3 - TSH Performed By: #### L 100.0100, L500.4100, L500.4050, [id number] #### [facility] [address] [place], [address] CO2 [Moles/Vol] 23.1 mmol/L Normal 21.0-32.0 [facility] Comment on above: Order Comment: Order Date: 08/08/24 Order Info: 07 - CMP Order Info: [id number] - LIPID Order Info: [id number] - TSH Performed By: #### L 100.0100, L500.4100, L500.4050, [id number] #### [facility] [address] [place], [address] Creatinine [Mass/Vol] 1.12 mg/dL Normal 0.70-1.20 [facility] Comment on above: Order Comment: Order Date: 08/08/24 Order Info: 0786- - CMP Order Info: [id number] - LIPID Order Info: [id number] - TSH Performed By: #### L 100.0100, L500.4100, L500.4050, [id number] #### [facility] [address] [place], [address] GAP 12 Normal 5-15 [facility] Comment on above: Order Comment: Order Date: 08/08/24 Order Info: 0786-1 - CMP Order Info: [id number] - LIPID Order Info: [id number] - TSH Performed By: #### L 100.0100, L500.4100, L500.4050, [id number] #### [facility] [address] [place], [address] GFR/1.73 sq M.predicted among non-blacks MDRD (S/P/Bld) [Vol rate/Area] 82 mL/min/{1.73_m2} Normal >60 [facility] Comment on above: Order Comment: Order Date: 08/08/24 Order Info: 785-02 - CMP Order Info: - LIPID Order Info: [id number] - TSH Result Comment: mL/m in/1.73m2 CKD-EPI Creatinine Equation (2020) Performed By: #### L 100.0100, L500.4100, L500.4050, L501.9520 #### [facility] [address] [place], [address] Globulin (S) [Mass/Vol] 3.0 g/dL Normal 2.2-4.2 [facility] Comment on above: Order Comment: Order Date: 08/08/24 Order Info: 785-02 - CMP Order Info: - LIPID Order Info: [id number] - TSH Performed By: #### L 100.0100, L500.4100, L500.4050, [id number] #### [facility] [address] [place], [address] Glucose [Mass/Vol] 93 mg/dL Normal 70-99 [facility] Comment on above: Order Comment: Order Date: 08/08/24 Order Info: 785-02 - CMP Order Info: - LIPID Order Info: [id number] - TSH Performed By: #### L 100.0100, L500.4100, L500.4050, [id number] #### [facility] [address] [place], [address] Potassium [Moles/Vol] 4.5 mmol/L Normal 3.3-5.1 [facility] Comment on above: Order Comment: Order Date: 08/08/24 Order Info: 785- - CMP Order Info: [id number] - LIPID Order Info: [id number] - TSH Performed By: #### L 100.0100, L500.4100, L500.4050, [id number] #### [facility] [address] [place], [address] Sodium [Moles/Vol] 139 mmol/L Normal 133-145 [facility] Comment on above: Order Comment: Order Date: 08/08/24 Order Info: 785- - CMP Order Info: [id number] - LIPID Order Info: 3 - TSH Performed By: #### L 100.0100, L500.4100, L500.4050, [id number] #### [facility] [address] [place], [place], [address] T PROT 7.4 g/dL Normal 5.9-8.4 [facility] Comment on above: Order Comment: Order Date: 08/08/24 Order Info: 785-02 - CMP Order Info: [id number] - LIPID Order Info: [id number] - TSH Performed By: #### L 100.0100, L500.4100, L500.4050, [id number] #### [facility] [address] [place], [address] Urea nitrogen [Mass/Vol] 20 mg/dL High 4-19 [facility] Comment on above: Order Comment: Order Date: 08/08/24 Order Info: 0786 - CMP Order Info: [id number] - LIPID Order Info: [id number] - TSH Performed By: #### L 100.0100, L500.4100, L500.4050, [id number] #### [facility] [address] [place], [address] Eosinophil percentageOrdered By: eSna Flanagan on 08-08-2024 Eosinophils/100 WBC (Bld) 1.3 % 0-5 [facility] Erythrocyte distribution wid th ratioOrdered By: Sena Flanagan on 08-08-2024 Erythrocyte distribution width (RBC) [Ratio] 12.7 % 11.6-14.6 [facility] Erythrocyte distribution wid th standard deviationOrdered By: Sena Flanagan on 08-08-2024 Erythrocyte distribution width (RBC) [Ratio] 39.9 fl 35.1-43.9 [facility] Glomerular filtration rate ( GFR) estimation/1.73 sq m using serum, plasma, or whole bOrdered By: Snea Flanagan on 08-08-2024 GFR/1.73 sq M.predicted among non-blacks MDRD (S/P/Bld) [Vol rate/Area] 82 mL/min/{1.73_m2} >60 [facility] Comment on above: mL/min/1.73m2 CKD-EP I Creatinine Equation (2020) Hematocrit Auto (Bld) [Volum e fraction]Ordered By: Sena Flanagan on 08-08-2024 Hematocrit (Bld) [Volume fraction] 44.0 % 40-54 [facility] Hemoglobin measurementOrdere d By: Sena Flanagan on 08-08-2024 Hemoglobin (Bld) [Mass/Vol] 14.8 g/dL 13.0-16.5 [facility] Immature granulocytes/100 WB C Auto (Bld)Ordered By: Sena Flanagan on 08-08-2024 Immature granulocytes/100 WBC (Bld) 0.200 % 0.0-0.9 [facility] Comment on above: IG% - Immature Granu locytes (promyelocytes, myelocytes and metamyelocytes) > 1% indicates that a LEFT SHIFT is Present. LDL calc ser/plasOrdered By: Sena Flanagan on 08-08-2024 Cholesterol in LDL [Mass/Vol] 117 mg/dL [facility] Comment on above: Cnzyzbfvcp=119-623 m g/dL & Higher Gyrt=822 mg/dL or greater Laboratory - Chemistry and C hemistry - challengeOrdered By: Sena Flanagan on 08-08-2024 AST [Catalytic activity/Vol] 20 U/L <38 [facility] Lipid Profileon 08-08-2024 CHOL:HDL 6.51 Normal [facility] Comment on above: Order Comment: Order Date: 08/08/24 Order Info: 07- - CMP Order Info: - LIPID Order Info: 3 - TSH Performed By: #### L 100.0100, L500.4100, L500.4050, L501.9520 #### [facility] [address] [place], [address] Cholesterol [Mass/Vol] 209 mg/dL High <=200 [facility] Comment on above: Order Comment: Order Date: 08/08/24 Order Info: 785-02 - CMP Order Info: - LIPID Order Info: 3 - TSH Result Comment: Chol esterol level, Desirable <200 mg/dL Borderline high cholesterol 200-239 mg/dL High cholesterol >=240 mg/dL Recommendations of the NCEP Adult Treatment Panel for the following risk-cutoff thresholds for the [place] population. Performed By: #### L 100.0100, L500.4100, L500.4050, L501.9520 #### [facility] [address] [place], [address] Cholesterol in HDL [Mass/Vol] 32 mg/dL Low [facility] Comment on above: Order Comment: Order Date: 08/08/24 Order Info: 0786 - CMP Order Info: [id number] - LIPID Order Info: 3 - TSH Result Comment: Alanis onal Cholesterol Education Program (NCEP) guidelines: <40 mg/dL: Low HDL-cholesterol (major risk factor for CHD) >= 60 mg/dL: High HDL-cholesterol (negative risk factor for CHD) HDL-cholesterol is affected by a number of factors, e.g. smoking, exercise, hormones, sex and age. Performed By: #### L 100.0100, L500.4100, L500.4050, L501.9520 #### [facility] [address] [place], [address] Cholesterol in LDL [Mass/Vol] 117 mg/dL Normal [facility] Comment on above: Order Comment: Order Date: 08/08/24 Order Info: 0786-1 - CMP Order Info: [id number] - LIPID Order Info: 3013 - TSH Result Comment: Bord ezkknl=745-013 mg/dL Higher Depr=709 mg/dL or greater Performed By: #### L 100.0100, L500.4100, L500.4050, L501.9520 #### [facility] [address] [place], [address] Cholesterol in VLDL [Mass/Vol] 60 mg/dL High 5-40 [facility] Comment on above: Order Comment: Order Date: 08/08/24 Order Info: 0786-1 - CMP Order Info: [id number] - LIPID Order Info: 3 - TSH Performed By: #### L 100.0100, L500.4100, L500.4050, L501.9520 #### [facility] [address] [place], [address] Triglyceride [Mass/Vol] 298 mg/dL High [facility] Comment on above: Order Comment: Order Date: 08/08/24 Order Info: 0786-1 - CMP Order Info: [id number] - LIPID Order Info: 3013 - TSH Result Comment: The drugs N-Acetylcysteine and Metamizole may falsely depress this assay. Normal range: <150 mg/dL Borderline High: 150-199 mg/dL High: 200-499 mg/dL Very High: >500 mg/dL Performed By: #### L 100.0100, L500.4100, L500.4050, L501.9520 #### [facility] [address] [place], [address] MCV (mean corpuscular volume ) determinationOrdered By: Sena Flanagan on 08-08-2024 MCV (RBC) [Entitic vol] 86.3 fL 80-94 [facility] Mean corpuscular hemoglobin (MCH) determinationOrdered By: Sena Flanagan on 08-08-2024 MCH (RBC) [Entitic mass] 29.0 pg 27.0-32.0 [facility] Mean corpuscular hemoglobin concentration (MCHC) determinationOrdered By: Sena Flanagan on 08-08-2024 MCHC (RBC) [Mass/Vol] 33.6 g/dL 32-36 [facility] Mean platelet volume determi nationOrdered By: Sena Flanagan on 08-08-2024 Platelet mean volume (Bld) [Entitic vol] 10.8 fL 6.2-12.0 [facility] Monocyte percentageOrdered B y: Sena Flanagan on 08-08-2024 Monocytes/100 WBC (Bld) 12.1 % High 0-10 [facility] Neutrophil percentageOrdered By: Sena Flanagan on 08-08-2024 Neutrophils/100 WBC (Bld) 51.4 % 47-70 [facility] Nucleated red blood cell per centageOrdered By: Sena Flanagan on 08-08-2024 Nucleated RBC/100 WBC (Bld) [Ratio] 0 % 0-5 [facility] Platelet countOrdered By: Jay Flanagan on 08-08-2024 Platelets (Bld) [#/Vol] 209 10*3/uL 150-450 [facility] Potassium measurement (mass/ volume)Ordered By: Sena Flanagan on 08-08-2024 Potassium (Unsp spec) [Mass/Vol] 4.5 mmol/L 3.3-5.1 [facility] RBC Auto (Bld) [#/Vol]Ordere d By: Sena Flanagan on 08-08-2024 RBC (Bld) [#/Vol] 5.10 10*6/uL 4.6-6.2 [facility] Screening total cholesterol/ high density lipoprotein (HDL) cholesterol ratioOrdered By: Sena Flanagan on 08-08-2024 Cholesterol.total/Cho lesterol in HDL [Mass ratio] 6.51 {ratio} [facility] Serum creatinine measurement (mass/volume)Ordered By: Sena Flanagan on 08-08-2024 Creatinine [Mass/Vol] 1.12 mg/dL 0.70-1.20 [facility] Serum globulin measurementOr dered By: Sena Flanagan on 08-08-2024 Globulin (S) [Mass/Vol] 3.0 g/dL 2.2-4.2 [facility] Serum glucose measurement (m ass/volume)Ordered By: Sena Flanagan on 08-08-2024 Glucose [Mass/Vol] 93 mg/dL 70-99 [facility] Serum or plasma alanine agee otransferase (ALT) measurementOrdered By: Sena Flanagan on 08-08-2024 ALT [Catalytic activity/Vol] 19 U/L <47 [facility] Serum or plasma albumin jany urement (mass/volume)Ordered By: Sena Flanagan on 08-08-2024 Albumin [Mass/Vol] 4.4 g/dL 3.5-5.0 [facility] Serum or plasma albumin/glob ulin mass ratioOrdered By: Sena Panchito on 08-08-2024 Albumin/Globulin [Mass ratio] 1.5 {ratio} 0.9-2.4 [facility] Serum or plasma alkaline memo sphatase measurementOrdered By: Sena Flanagan on 08-08-2024 ALP [Catalytic activity/Vol] 74 U/L 40-129 [facility] Serum or plasma calcium jany urement (mass/volume)Ordered By: Sena Flanagan on 08-08-2024 Calcium [Mass/Vol] 9.7 mg/dL 7.6-11.0 [facility] Serum or plasma cholesterol in HDL measurement (mass/volume)Ordered By: Sena Flanagan on 08-08-2024 Cholesterol in HDL [Mass/Vol] 32 mg/dL Low >40 [facility] Comment on above: National Cholesterol Education Program (NCEP) guidelines:<40 mg/dL: Low HDL-cholesterol (major risk factor for CHD)>= 60 mg/dL: High HDL-cholesterol (negative risk factor for CHD)HDL-cholesterol is affected by a number of factors, e.g. smoking, exercise, hormones, sex and age. Serum or plasma cholesterol measurement (mass/volume)Ordered By: Sena Flanagan on 08-08-2024 Cholesterol [Mass/Vol] 209 mg/dL High <201 [facility] Comment on above: Cholesterol level, D esirable <200 mg/dLBorderline high cholesterol 200-239 mg/dLHigh cholesterol >=240 mg/dLRecommendations of the NCEP Adult Treatment Panel for the following risk-cutoff thresholds for the [place] population. Serum or plasma urea nitroge n measurement (mass/volume)Ordered By: Sena Flanagan on 08-08-2024 Urea nitrogen [Mass/Vol] 20 mg/dL High 4-19 [facility] Sodium levelOrdered By: Jurgen Flanagan on 08-08-2024 Sodium [Moles/Vol] 139 mmol/L 133-145 [facility] TSH DL <= 0.005 mIU/L QnOrde red By: Sena Flanagan on 08-08-2024 TSH Qn 1.990 uIU/mL 0.300-4.20 0 [facility] Thyroid Stim Hormone (TSH)on 08-08-2024 TSH 1.990 uIU/mL Normal 0.300-4.20 0 [facility] Comment on above: Order Comment: Order Date: 08/08/24 Order Info: [id number] - CMP Order Info: [id number] - LIPID Order Info: [id number] - TSH Performed By: #### L 100.0100, L500.4100, L500.4050, L501.9520 #### [facility] [address] [place], [place], [id number] Total proteinOrdered By: Yesi Flanagan on 08-08-2024 Protein [Mass/Vol] 7.4 g/dL 5.9-8.4 [facility] Triglycerides measurementOrd ered By: Sena Flanagan on 08-08-2024 Triglyceride [Mass/Vol] 298 mg/dL High <199 [facility] Comment on above: The drugs N-Acetylcy steine and Metamizole may falsely depress this assay. Normal range: <150 mg/dLBorderline High: 150-199 mg/dLHigh: 200-499 mg/dLVery High: >500 mg/dL White blood cell (WBC) count Ordered By: Sena Flanagan on 08-08-2024 WBC (Bld) [#/Vol] 4.6 10*3/uL 4.4-11.0 [facility] Quantiferon TB-Gold+on 06-03 QFT MITOGEN BONNIE > 10.00 Normal . [facility] Comment on above: Performed By: #### L 3400.8000 #### [facility] [address] [place], [address] QFT NIL VALUE > 10.00 Normal . [facility] Comment on above: Performed By: #### L 3400.8000 #### [facility] [address] [place], [place], [id number] (068) QFT TB GOLD+ Comment Normal . [facility] Comment on above: Result Comment: Surinder tiFERON-TB [...] test. Performed By: #### L 3400.8000 #### [facility] [address] [place], [place], [id number] QFT TB POS CRIT Indeterminate Abnormal Negative [facility] Comment on above: Result Comment: Nil (negative [...] interferon gamma. Chemiluminescence immunoassay methodology Performed at: [employer] [id number] [employer] Rod Assembler: Maverick Celeste PhD, Phone: [phone] Performed By: #### L 3400.8000 #### [facility] [address] [place], [place], [address] QFT TB1+ AG BONNIE > 10.00 Normal . [facility] Comment on above: Performed By: #### L 3400.8000 #### [facility] [address] [place], [place], [address] QFT TB2+ AG BONNIE > 10.00 Normal . [facility] Comment on above: Performed By: #### L 3400.8000 #### [facility] [address] [place], [address] M. tuberculosis tuberculin s alexandra IFN-g Ql (Bld)Ordered By: Latrice Aguilar on 05-31-2024 TB Test (QFT) Antigen 1 > 10.00 IU/mL . [facility] Qualitative QuantiFERON-TB g old in tube testOrdered By: Latrice Aguilar on 05-31-2024 M. tuberculosis tuberculin stim IFN-g Ql (Bld) > 10.00 IU/mL . [facility] Quantiferon-TB Gold Plus tiffany tOrdered By: Latricetrent Aguilar on 05-31-2024 TB Test (QFT) Comment . [facility] Comment on above: QuantiFERON-TB Gold Plus is [...] (QFT) Antigen 2 > 10.00 IU/mL . [facility] TB Test (QFT) Mitogen > 10.00 IU/mL . [facility] TB Test (QFT) Nil > 10.00 IU/mL . [facility] TB Test (QFT) Positive Criteria Indeterminate High Negative [facility] Comment on above: Nil (negative contro l) [...] the productionof interferon gamma. Chemiluminescence immunoassaymethodologyPerformed at: [facility] [employer] [id number] Director: Maverick Celeste PhD, Phone: [phone] Quantiferon TB-Gold+on 05-02 QFT MITOGEN BONNIE > 10.00 Normal . [facility] Comment on above: Performed By: #### L 3400.8000 #### [facility] [address] [place], [place], [id number] (503) QFT NIL VALUE > 10.00 Normal . [facility] Comment on above: Performed By: #### L 3400.8000 #### [facility] [address] [place], [place], [id number] (607) QFT TB GOLD+ Comment Normal . [facility] Comment on above: Result Comment: Surinder tiFERON-TB [...] test. Performed By: #### L 3400.8000 #### [facility] [address] [place], [address] QFT TB POS CRIT Indeterminate Abnormal Negative [facility] Comment on above: Result Comment: Nil (negative [...] interferon gamma. Chemiluminescence immunoassay methodology Performed at: [address] [id number] [employer] Rod Assembler: Maverick Celeste PhD, Phone: [phone] Performed By: #### L 3400.8000 #### [facility] [address] [place], [place], [id number] QFT TB1+ AG BONNIE > 10.00 Normal . [facility] Comment on above: Performed By: #### L 3400.8000 #### [facility] [address] [place], [address] QFT TB2+ AG BONNIE > 10.00 Normal . [facility] Comment on above: Performed By: #### L 3400.8000 #### [facility] [address] [place], [address] M. tuberculosis tuberculin s alexandra IFN-g Ql (Bld)Ordered By: Latrice Aguilar on 04-30-2024 TB Test (QFT) Antigen 1 > 10.00 IU/mL . [facility] Qualitative QuantiFERON-TB g old in tube testOrdered By: Latrice Aguilar on 04-30-2024 M. tuberculosis tuberculin stim IFN-g Ql (Bld) > 10.00 IU/mL . [facility] Quantiferon-TB Gold Plus tiffany tOrdered By: Latrice Aguilar on 04-30-2024 TB Test (QFT) Comment . [facility] Comment on above: QuantiFERON-TB Gold Plus is [...] (QFT) Antigen 2 > 10.00 IU/mL . [facility] TB Test (QFT) Mitogen > 10.00 IU/mL . [facility] TB Test (QFT) Nil > 10.00 IU/mL . [facility] TB Test (QFT) Positive Criteria Indeterminate High Negative [facility] Comment on above: Nil (negative contro l) [...] the productionof interferon gamma. Chemiluminescence immunoassaymethodologyPerformed at: [address], [place] [id number] Director: Maverick Celeste PhD, Phone: [phone] Urgent Care Visit Reporton 0 11-20-2023 Urgent Care Visit Report [facility] [address], [address] [place] [address] OFFICE VISIT Date of Service: 11/20/23 MR#: [id number] Acct: [id number] Name: GIO DOVER Rep #: [id number] : 1980 Provider: FEDERICA Jerry Age/Sex: 43/M Location: [facility] Status: Signed Intake Vital Signs 11/20/23 06:13 [...] Smoking Status: Never smoker HPI HPI Details: GIO DOVER, is a 43 M who presents to the office today for initial evaluation new onset left eye conjunctival injection with exudate first noticed this morning upon awakening. No vision changes or eye globe pain. No complaints of fever, chills, sweats, lightheadedness/dizziness, nausea/vomiting. No bnye-jua-pzqnvem ophthalmic drops tried to assist. No other [...] Q2H 5 mL 0RF 11/20/23 0725 Date Brian Doyle Signature: Date (if applicable) CC: Normal [facility] Serum or plasma uric acid me asurement (mass/volume)Ordered By: Lupe Willoughby on 06-19-2023 Urate [Mass/Vol] 8.3 mg/dL 3.5-7.2 [facility] Comment on above: The drugs N-Acetylcy steine and Metamizole may falsely depress this assay. Basophil percentageOrdered B y: Lupe Willoughby on 05-05-2023 Hemoglobin (Bld) [Mass/Vol] 14.5 g/dL 13.0-16.5 [facility] WBC (Bld) [#/Vol] 6.9 10*3/uL 4.4-11.0 [facility] Determination of erythrocyte mean corpuscular volume (MCV)Ordered By: Lupe Willoughby on 05-05-2023 MCV (RBC) [Entitic vol] 86.8 fL 80-94 [facility] Erythrocyte distribution wid th ratioOrdered By: Lupe Willoughby on 05-05-2023 Erythrocyte distribution width (RBC) [Ratio] 12.7 % 11.6-14.6 [facility] Erythrocyte distribution wid th standard deviationOrdered By: Lupe Willoughby on 05-05-2023 Erythrocyte distribution width (RBC) [Entitic vol] 39.8 fL 35.1-43.9 [facility] Erythrocyte sedimentation ra teOrdered By: Lupe Willoughby on 05-05-2023 ESR (Bld) [Velocity] 5 mm/h 0-20 [facility] Hematocrit Auto (Bld) [Volum e fraction]Ordered By: Lupe Willoughby on 05-05-2023 Hematocrit (Bld) [Volume fraction] 43.3 % 40-54 [facility] - Hematology and Cell countsOrdered By: Lupe Willoughby on 05-05-2023 MCH (RBC) [Entitic mass] 29.1 pg 27.0-32.0 [facility] MCHC (RBC) [Mass/Vol] 33.5 g/dL 32-36 [facility] Platelet mean volume (Bld) [Entitic vol] 11.4 fL 6.2-12.0 [facility] Platelets (Bld) [#/Vol] 251 10*3/uL 150-450 [facility] RBC Auto (Bld) [#/Vol]Ordere d By: Lupe Willoughby on 05-05-2023 RBC (Bld) [#/Vol] 4.99 10*6/uL 4.6-6.2 [facility] Serum or plasma uric acid me asurement (mass/volume)Ordered By: Lupe Willoughby on 05-05-2023 Urate [Mass/Vol] 6.8 mg/dL 3.5-7.2 [facility] Comment on above: The drugs N-Acetylcy steine and Metamizole may falsely depress this assay. CNOVon 02-15-2023 CNOV Office Visit (UCWSTR ) GIO DOVER ([id number]) 1980 M Date Time Provider Department 02/15/23 4:45 PM ASHLYN GARCIA [facility] During your visit today, we recorded [...] Discussed expected course of illness Ashlyn Garcia APRN.ENVIRONMENTAL COMPLIANCE OFFICER Adult Sinusitis Patient Education What is Sinusitis? Sinusitis [kkby-gav-gzjg-tis] is inflammation of the sinuses or swelling [...] help. You may be instructed to take xmpr-pbv-liydbdw medications for symptoms. including fever reducers acetaminophen or ibuprofen, nasal saline spray, cough and cold preparations and decongestants as prescribed by the physician, nurse practitioner or physician workforce development assistant. Self-Care and Prevention: Rest Fluids for hydration Good hand washing Humidifier Avoid smoking and exposure to second hand smoke Avoid sick contacts Ashlyn Garcia APRN.ENVIRONMENTAL COMPLIANCE OFFICER 02/15/2023 4:53 PM Signed Subjective Sinus Problem Associated symptoms include congestion, coughing and headaches. Pertinent negatives include no chills, fever or sore throat. Gio Dover is a 42 year old male [...] distress. Breath (more content not included)... Normal [facility] CNOVon 12-27-2022 CNOV Office Visit (UCWSTR ) GIO DOVER ([id number]) 1980 M Date Time Provider Department 12/27/22 7:15 AM TATIANA AMADO [facility] During your visit today, we recorded the following information about you: Temperature Pulse Respiration Blood pressure 96.9 degrees 70/minute 16/minute 112/72 Weight 93.9 kg Tatiana Amado APRN.CNP 12/27/2022 9:54 AM Signed Subjective HPI HPI Gio Dover is a 42 year old male [...] pain, right [M79.674] Order(s):XR TOE AP/LAT/OBL RIGHT [[id number]] Order #: [id number]. #:[id number] predniSONE (DELTASONE) 10 mg tabletTake 4 tabs [...] Diet Recommen (more content not included)... Normal [facility] Mason 12-27-2022 HERBER Telephone (WSTR) GIO DOVER ([id number]) 1980 M Date Time Provider Department 12/27/22 TATIANA AMADO During your visit today, we recorded the following information about you: Tatiana Amado APRN.ENVIRONMENTAL COMPLIANCE OFFICER 12/27/2022 8:35 AM Signed Please notify that [...] Encounter Status:Closed by CECILLE BOCANEGRA on 12/27/22 Normal [facility] XR TOE 3V AP/LAT/OBL RTon XR [...] No radiographic evidence of acute osseous abnormality Duty Officer: TRAY Transcribe Date/Time: Dec 27 2022 8:15A Dictated by : CIPRIANO DIAZ MD This examination was interpreted and the report reviewed and electronically signed by: CIPRIANO DIAZ MD on Dec 27 2022 8:16AM EST [id number] Normal [facility] XR Toes - right 3 Viewson IMPRESSION: No radiographic evidence of acute osseous abnormality Duty Officer: [facility] Transcribe Date/Time: Dec 27 2022 8:15A [...] radiopaque foreign body. DIVISION OF RADIOLOGY Provider, [facility] - 12/27/2022 * * *Final Report* * [...] No radiographic evidence of acute osseous abnormality Duty Officer: [facility] Transcribe Date/Time: Dec 27 2022 8:15A Dictated by : CIPRIANO DIAZ MD This examination was interpreted and the report reviewed and electronically signed by: CIPRIANO DIAZ MD on Dec 27 2022 8:16AM EST [facility] Radiology Study observation (narrative) [facility] XR Toes - right 3 ViewsOrder ed By: [facility] Provider on 12-27-2022 [facility] CNOVon 12-10-2022 CNOV Office Visit (UCWSTR ) GIO DOVER ([id number]) 1980 M Date Time Provider Department 12/10/22 8:45 AM KATHLEEN STILES [facility] During your visit today, we recorded the following information about you: Temperature Pulse Respiration Blood pressure 97.8 degrees 68/minute 18/minute 125/86 Weight 93.4 kg Kathleen Stiles APRN.ENVIRONMENTAL COMPLIANCE OFFICER 12/10/2022 8:37 AM Signed CC: Patient presents with: Pain, Sinus: Head congestion, pain in ears and teeth x 10 days HPI: Gio Dover is a 42 year old male [...] Patient agreeable to treatment plan. Kathleen Stiles APRN.ENVIRONMENTAL COMPLIANCE OFFICER Allergies As of Date: 12/10/2022 (No Known Allergies) Date Reviewed: 12/10/2022 Reviewed by: Katerin Miller LPN - Fully Assessed Reason for Visit: Pain, Sinus [857] Cmt: Head congestion, pain in ears and teeth x 10 days Primary Visit Diagnosis:Rhinosinusitis [J32.9] Other Visit Diagnosis:Acute cough [R05.1] Order(s):amoxicillin-clavulan ic acid (AUGMENTIN) 875-125 mg per tabletTake 1 [...] Status:Closed by KATHLEEN STILES on 12/10/22 Normal [facility] Absolute lymphocyte counton 09-13-2021 Lymphocytes Auto (Unsp spec) [#/Vol] 1.64 10*3/uL 0.83-4.51 [facility] Work Phone: Basophil percentageon 2021 Basophils/100 WBC (Bld) 0.8 % 0-1 [facility] Work Phone: Bilirubin [Mass/Vol] 0.50 mg/dL 0.20-1.00 [facility] Work Phone: Comment on above: For patients on eltr ombopag therapy, use of Dimension [place] TBIL is not recommended. Chloride [Moles/Vol] 109 mmol/L 98-107 [facility] Work Phone: Cholesterol [Mass/Vol] 208 mg/dL <200 [facility] Work Phone: Comment on above: <200 mg/dL Desirable 200-240 mg/dL Borderline >240 mg/dL High Risk Eosinophils/100 WBC (Bld) 1.3 % 0-5 [facility] Work Phone: Glucose [Mass/Vol] 91 mg/dL 74-106 [facility] Work Phone: Neutrophils (Bld) [#/Vol] 2.9 10*3/uL 2.0-7.7 [facility] Work Phone: Neutrophils/100 WBC (Bld) 55.5 % 47-70 [facility] Work Phone: Potassium [Moles/Vol] 4.4 mmol/L 3.5-5.1 [facility] Work Phone: Protein [Mass/Vol] 8.0 g/dL 6.4-8.2 [facility] Work Phone: Sodium [Moles/Vol] 140 mmol/L 136-145 [facility] Work Phone: [phone] Triglyceride [Mass/Vol] 350 mg/dL <199 [facility] Work Phone: [phone] Comment on above: The drugs N-Acetylcy steine and Metamizole may falsely depress this assay.Serum Triglycerides Reference Interval Normal <150 mg/dL Borderline high 150 - 199 mg/dL High 200 - 499 mg/dL Very High > or = 500 mg/dL WBC (Bld) [#/Vol] 5.3 10*3/uL 4.4-11.0 [facility] Work Phone: Blood erythrocytes count (nu mber/volume)on 09-13-2021 RBC (Bld) [#/Vol] 5.40 10*6/uL 4.6-6.2 [facility] Work Phone: Blood hemoglobin measurement (mass/volume)on 09-13-2021 Hemoglobin (Bld) [Mass/Vol] 15.3 g/dL 13.0-16.5 [facility] Work Phone: Blood lymphocytes/100 leukoc yteson 09-13-2021 Lymphocytes/100 WBC (Bld) 31.2 % 19-41 [facility] Work Phone: Blood monocytes/100 leukocyt eson 09-13-2021 Monocytes/100 WBC (Bld) 11.0 % 0-10 [facility] Work Phone: [phone] Blood platelet mean volumeon 09-13-2021 Platelet mean volume (Bld) [Entitic vol] 10.9 fL 6.2-12.0 [facility] Work Phone: [phone] Determination of erythrocyte mean corpuscular volume (MCV)on 09-13-2021 MCV (RBC) [Entitic vol] 86.3 fL 80-94 [facility] Work Phone: Hematocrit Auto (Bld) [Volum e fraction]on 09-13-2021 Hematocrit (Bld) [Volume fraction] 46.6 % 40-54 [facility] Work Phone: [phone] Laboratory - Chemistry and C hemistry - challengeon 09-13-2021 ALP [Catalytic activity/Vol] 74 U/L 45-117 [facility] Work Phone: [phone] ALT [Catalytic activity/Vol] 30 U/L 16-61 [facility] Work Phone: [phone] CO2 [Moles/Vol] 26.0 mmol/L 21.0-32.0 [facility] Work Phone: [phone] Globulin (S) [Mass/Vol] 3.9 g/dL 2.2-4.2 [facility] Work Phone: [phone] Urea nitrogen/Creatinine [Mass ratio] 19.6 mg/mg 10-20 [facility] Work Phone: [phone] Laboratory - Hematology and Cell countson 09-13-2021 Erythrocyte distribution width (RBC) [Entitic vol] 40.8 fL 35.1-43.9 [facility] Work Phone: [phone] Erythrocyte distribution width (RBC) [Ratio] 13.1 % 11.6-14.6 [facility] Work Phone: Immature granulocytes/100 WBC (Bld) 0.200 % 0.0-0.9 [facility] Work Phone: [phone] Comment on above: IG% - Immature Granu locytes (promyelocytes, myelocytes and metamyelocytes) > 1% indicates that a LEFT SHIFT is Present. MCH (RBC) [Entitic mass] 28.3 pg 27.0-32.0 [facility] Work Phone: Nucleated RBC/100 WBC (Bld) [Ratio] 0 % 0-5 [facility] Work Phone: MCHC Auto (RBC) [Mass/Vol]on 09-13-2021 MCHC (RBC) [Mass/Vol] 32.8 g/dL 32-36 [facility] Work Phone: No Panel Informationon 09-13 Estimated GFR (MDRD) Amer 92 mL/min >60 [facility] Work Phone: Comment on above: GFR Calc Estimated GFR (MDRD) Non-Af Amer 76 mL/min >60 [facility] Work Phone: Comment on above: Non- GFR Calc Thyroid Stimulating Hormone (TSH) 1.02 uIU/mL 0.358-3.74 [facility] Work Phone: Platelets bldon 09-13-2021 Platelets (Bld) [#/Vol] 236 10*3/uL 150-450 [facility] Work Phone: Serum or plasma albumin jany urement (mass/volume)on 09-13-2021 Albumin [Mass/Vol] 4.1 g/dL 3.2-5.0 [facility] Work Phone: Serum or plasma albumin/glob ulin mass ratioon 09-13-2021 Albumin/Globulin [Mass ratio] 1.1 {ratio} 0.9-2.4 [facility] Work Phone: Serum or plasma calcium jany urement (mass/volume)on 09-13-2021 Calcium [Mass/Vol] 9.4 mg/dL 8.5-10.1 [facility] Work Phone: Serum or plasma cholesterol in HDL measurement (mass/volume)on 09-13-2021 Cholesterol in HDL [Mass/Vol] 32 mg/dL >40 [facility] Work Phone: Comment on above: The drugs N-Acetylcy steine and Metamizole may falsely depress this assay. Reference Range HDL <40 mg/dL Low HDL Cholesterol HDL >or= 60 mg/dL High HDL Cholesterol Serum or plasma cholesterol in VLDL measurement (mass/volume)on 09-13-2021 Cholesterol in VLDL [Mass/Vol] 70 mg/dL 5-40 [facility] Work Phone: Serum or plasma creatinine m easurement (mass/volume)on 09-13-2021 Creatinine [Mass/Vol] 1.12 mg/dL 0.70-1.30 [facility] Work Phone: Comment on above: The validity of the calculated GFR & GFRAA in patients over 70 years has not been determined. Clinical correlation is essential. Serum or plasma low density lipoprotein (LDL) cholesterol measurement (mass/volume)on 09-13-2021 Cholesterol in LDL [Mass/Vol] 106 mg/dL 0-130 [facility] Work Phone: Serum or plasma urea nitroge n measurement (mass/volume)on 09-13-2021 Urea nitrogen [Mass/Vol] 22 mg/dL 7-18 [facility] Work Phone: Thin prep Papanicolaou smear with manual screeningon 09-13-2021 Thin prep Papanicolaou smear with manual screening 15 U/L 15-37 [facility] Work Phone: Thin prep Papanicolaou smear with manual screening 5 5-15 [facility] Work Phone: Whole blood hemoglobin A1c/t otal hemoglobin ratio (mass fraction)on 09-13-2021 HbA1c (Bld) [Mass fraction] 5.0 % 3.8-5.6 [facility] Work Phone: Comment on above: Normal < 5.7 % Predi abetic 5.7 - 6.4 % Diabetic >or= 6.5 % Please note range changes. Vital Signs Date Time Vital Sign Value Performing Clinician Petrona mauricio 12-10-2022 08:27-0400 Body temperature 97.81 [degF] Kathleen Stiles APRN.ENVIRONMENTAL COMPLIANCE OFFICER Work Phone: [facility] 12-10-2022 08:27-0400 Body weight 93.44 kg Kathleen Stiles APRN.ENVIRONMENTAL COMPLIANCE OFFICER Work Phone: [facility] 12-10-2022 08:27-0400 Diastolic blood pressure 86 mm[Hg] Kathleen Stiles APRN.ENVIRONMENTAL COMPLIANCE OFFICER Work Phone: [facility] 12-10-2022 08:27-0400 Heart rate 68 /min Kathleen Stiles APRN.ENVIRONMENTAL COMPLIANCE OFFICER Work Phone: [facility] 12-10-2022 08:27-0400 Respiratory rate 18 /min Kathleen Stiles APRN.ENVIRONMENTAL COMPLIANCE OFFICER Work Phone: [facility] 12-10-2022 08:27-0400 SaO2% (BldA) [Mass fraction] 96 % Kathleen Stiles APRN.ENVIRONMENTAL COMPLIANCE OFFICER Work Phone: [facility] 12-10-2022 08:27-0400 Systolic blood pressure 125 mm[Hg] Kathleen Stiles APRN.ENVIRONMENTAL COMPLIANCE OFFICER Work Phone: [facility] Encounters Encounter Date Encounter Type Care Provider Facility Start: 09-06-2024 End: 09-06-2024 ambulatory Shelley ROBLERO Work Phone: -Laboratory [facility] Start: 09-06-2024 End: 09-06-2024 Patient encounter procedure Latrice Aguilar PA-C -Laboratory [facility] Start: 09-06-2024 End: 09-06-2024 ambulatory Latrice STALLWORTH Facility:[facility] Start: 08-14-2024 Encounter for genera l adult medical examination without abnormal findings Sena Flanagan [facility] Start: 08-08-2024 End: 08-08-2024 ambulatory Shelley ROBLERO Work Phone: [facility] Work Phone: Start: 08-08-2024 End: 08-08-[address] Sena Flanagan MD -Laboratory [facility] Start: 08-08-2024 End: 08-08-2024 ambulatory Sena Flanagan Facility:[facility] Start: 05-31-2024 End: 05-31-2024 ambulatory Shelley Little [employer]INT[employer] MACHINIST-C Work Phone: [facility] Work Phone: Start: 05-31-2024 End: 05-31-2024 Patient encounter procedure Latrice STALLWORTH-C -[facility] Work Phone: Start: 05-31-2024 End: 05-31-2024 ambulatory Latrice STALLWORTH Facility:[facility] Start: 04-30-2024 End: 04-30-2024 ambulatory Shelley Little [employer] PR[employer] MACHINIST-C Work Phone: [facility] Work Phone: Start: 04-30-2024 End: 04-30-2024 Patient encounter procedure Latrice STALLWORTH-C -[facility] Work Phone: Start: 04-30-2024 End: 04-30-2024 ambulatory Latrice STALLWORTH Facility:[facility] Start: 11-20-2023 End: 11-20-2023 ambulatory Shelley Little NP Facility:[facility] Start: 06-19-2023 End: 06-19-2023 ambulatory [facility] Work Phone: Start: 06-19-2023 End: 06-19-2023 Patient encounter procedure [facility] Start: 05-05-2023 End: 05-05-2023 ambulatory [facility] Work Phone: Start: 05-05-2023 End: 05-05-2023 Patient encounter procedure [facility] Start: 02-15-2023 End: 02-15-2023 ambulatory TATIANA Facility:[facility] Start: 12-27-2022 Telephone encounter Tatiana sewell APRN.CNP Work Phone: [facility] Comment on above: Results Start: 12-27-2022 End: 12-27-2022 ambulatory TATIANA AMADO Facility:[facility] Start: 12-27-2022 End: 12-27-2022 Subsequent hospital visit by physician Xr [facility] Work Phone: Radiology Comment on above: Great toe pain, righ t [M79.674] Start: 12-10-2022 End: 12-10-2022 ambulatory [facility] Facility:[facility] Start: 12-10-2022 End: 12-10-2022 Patient encounter procedure Kathleen Júnior GUERRERO.ENVIRONMENTAL COMPLIANCE OFFICER Work Phone: [facility] Comment on above: Rhinosinusitis (Prim tee Dx); Acute cough Start: 09-13-2021 End: 09-13-2021 Patient encounter procedure [facility]-Laboratory, [facility] Procedures Date Procedure Procedure Detail Performing Clinician Start: 09-06-2024 In-vitro immunologic test Shelley Little NP -C Work Phone: Comment on above: QuantiFERON-TB Gold Plus is a qualitativ e indirect test forM tuberculosis infection (including disease) and isintended for use in conjunction with risk assessment,radiography, and other medical and diagnostic evaluations.The QuantiFERON-TB Gold Plus result is determined bysubtracting the Nil value from either TB antigen (Ag)value. The Mitogen tube serves as a control for the test. Nil (negative contro l) gave high response. [...] the productionof interferon gamma. Chemiluminescence immunoassaymethodologyPerformed at: [facility] [address] [id number] Director: Maverick Celeste PhD, Phone: [phone] Start: 05-31-2024 In-vitro immunologic test Shelley Little NP -C Work Phone: Comment on above: QuantiFERON-TB Gold Plus is a qualitativ e indirect test forM tuberculosis infection (including disease) and isintended for use in conjunction with risk assessment,radiography, and other medical and diagnostic evaluations.The QuantiFERON-TB Gold Plus result is determined bysubtracting the Nil value from either TB antigen (Ag)value. The Mitogen tube serves as a control for the test. Nil (negative contro l) gave high response. [...] the productionof interferon gamma. Chemiluminescence immunoassaymethodologyPerformed at: [facility] [id number] [place] [address] [id number] Director: Maverick Celeste PhD, Phone: [phone] Start: 04-30-2024 In-vitro immunologic test Shelley Little NP -C Work Phone: Comment on above: QuantiFERON-TB Gold Plus is a qualitativ e indirect test forM tuberculosis infection (including disease) and isintended for use in conjunction with risk assessment,radiography, and other medical and diagnostic evaluations.The QuantiFERON-TB Gold Plus result is determined bysubtracting the Nil value from either TB antigen (Ag)value. The Mitogen tube serves as a control for the test. Nil (negative contro l) gave high response. [...] the productionof interferon gamma. Chemiluminescence immunoassaymethodologyPerformed at: [facility] [id number] [place] [id number] Director: Maverick Celeste PhD, Phone: [phone] Start: 12-27-2022 Radex toe minimum 2 views Tatiana Amado APRN.CNP Work Phone: Plan of Treatment Date Care Activity Detail Author Start: 09-14-2031 Urine microalbumin profile DTa P,Tdap,Td Vaccine (3 - Td or Tdap) [facility] Start: 10-29-2023 Covid-19 Vaccine ( season) Covid-19 Vaccine ( season) [facility] Start: 10-29-2023 Influenza vaccination Influenza Vacc ine (#1) [facility] Start: 2023 Diabetes Screening Diabetes Screenin g [facility] Start: 2023 Screening for malign ant neoplasm of colon [facility] Start: 10-28-2022 Covid-19 Vaccine ( season) Covid-19 Vaccine ( season) [facility] Start: 10-28-2022 Influenza vaccination Influenza Vacc ine (#1) [facility] Start: 02-27-2022 Depression Assessment Depression Ass essment [facility] Start: 2013 Lipid 1996 panel - S desean or Plasma Lipid Screening [facility] Start: 2013 Lipid panel Lipid Screening [facility] Start: 1997 Hepatitis B Vaccine (1 of 3 - 19+ 3-dose series) Hepatitis B Vaccine (1 of 3 - 19+ 3-dose series) [facility] Start: 1997 Shingrix Vaccine (1 of 2) Brown grix Vaccine (1 of 2) [facility] Start: 1997 Urine microalbumin profile DTa P,Tdap,Td Vaccine (1 - Tdap) [facility] Start: 1996 Anxiety Screening Anxiety Screening [facility] Start: 1996 Depression Screening Depression Scre ening [facility] Start: 1996 Hepatitis C Screening Hepatitis C [facility] Start: 1996 Hepatitis C screening Hepatitis C [facility] Start: 1996 HIV Screening HIV Screening [facility] Start: 1996 HIV screening HIV Screening [facility] Start: 1984 Pneumococcal vaccination [facility] Start: 1978 Hepatitis B Vaccine (1 of 3 - 3-dose series) Hepatitis B Vaccine (1 of 3 - 3-dose series) [facility] Immunizations Immunization Date Immunization Notes Care Provider Rigoberto roman 11-11-2020 influenza virus vaccine, unspecified formulation Kathleen Stiles APRN.ENVIRONMENTAL COMPLIANCE OFFICER Work Phone: [facility] 05-21-2020 Covid (Moderna) [facility] 04-23-2020 Covid (Moderna) [facility] 05-17-2014 tetanus toxoid, redu isis diphtheria toxoid, and acellular pertussis vaccine, adsorbed [facility] Payers Date Payer Category Payer Self-pay [id number] 2018 Unknown MMO MMO [employer] PPO [id number] 2018-Present [phone] [address] [place] [address] PPO [id number] 2018 Unknown [id number] 2012 Unknown [id number] Unknown [id number] Unknown [id number] Unknown [id number] Unknown [id number] Social History Date Type Detail Facility Start: 05-17-2014 Tobacco smoking stat us MDIS Unknown if ever smoked [facility] Start: 1980 Sex Assigned At Male [facility] Start: 12-10-2022 End: 11-20-2023 Tobacco smoking status NHIS Never smoked tobacco [facility] Start: 12-10-2022 Tobacco use and exposure Smokeless tobacco non-user [facility] Start: 12-10-2022 End: 12-27-2022 Alcohol intake Current non-drinker of alcohol (finding) [facility] Start: 12-10-2022 End: 12-27-2022 History of Social function [facility] Start: 12-10-2022 End: 12-27-2022 Tobacco use panel [facility] Start: 1980 Sex Assigned At Not on file [facility] Start: 05-10-2024 End: 06-03-2024 Sex Male (finding) [facility] Clinical Notes 12-10-2022 to 02-15-2023 Telephone Encounter - Cecille Bocanegra RN - 12/27/2022 8:44 AM EDTTelephone Encounter - Delia Yuan LPN - 12/27/2022 8:41 AM EDTDaLiliana jiménez RT(R) - 12/27/2022 8:00 AM EDT Note Date & Type Note Facility 02-15-2023 Note HNO ID: [id number] Author: Ashlyn Garcia APRN.ENVIRONMENTAL COMPLIANCE OFFICER Service: ? Author Type: Nurse Practitioner Type: Progress Notes Filed: 02/15/2023 4:53 PM Note Text: Subjective Sinus Problem Associated symptoms include congestion, coughing and headaches. Pertinent negatives include no chills, fever or sore throat. Gio Dover is a 42 year old male [...] Discussed expected course of illness Ashlyn Garcia APRN.ENVIRONMENTAL COMPLIANCE OFFICER [facility] 12-27-2022 Note HNO ID: [id number] Author: Tatiana Amado APRN.ARIADNA Service: ? Author Type: Nurse Practitioner Type: Progress Notes Filed: 12/27/2022 9:54 AM Note Text: Subjective HPI HPI Gio Dover is a 42 year old male [...] - PREDNISONE 10 MG TABLET Tatiana Amado APRN.[facility] 12-27-2022 Note HNO ID: [id number] Author: Liliana Ca RT(R) Service: Radiology Author Type: Technologist Type: Progress Notes Filed: 12/27/2022 8:12 AM Note Text: Radiology Service Progress Note PATIENT NAME: Gio Dover DATE OF SERVICE: December 27, 2022 [...] RT Mila(R) December 27, 2022 8:01 AM [facility] 12-27-2022 Miscellaneous Notes Formattin g of this note might be different from the original. Patient returned call and given provider's message below and patient verbalized understanding. Vania Bocanegra RN LEFT MESSAGE FOR PATIENT TO CALL BACK /SHERRY FAN Please notify that xray normal. Prednisone to pharmacy. documented in this encounter [facility] 12-27-2022 History of Presen t illness Narrative Radiology Service Progress Note PATIENT NAME: Gio Dover DATE OF SERVICE: December 27, 2022 [...] 2022 8:01 AM documented in this encounter [facility] 12-10-2022 Note HNO ID: [id number] Author: Kathleen Stiles APRN.ARIADNA Service: ? Author Type: Nurse Practitioner Type: Progress Notes Filed: 12/10/2022 8:37 AM Note Text: CC: Patient presents with: Pain, Sinus: Head congestion, pain in ears and teeth x 10 days HPI: Gio Dover is a 42 year old male [...] Patient agreeable to treatment plan. Kathleen Stiles APRN.[facility] 12-10-2022 History of Presen t illness Narrative CC: Patient presents with: Pain, Sinus: Head congestion, pain in ears and teeth x 10 days HPI: Gio Dover is a 42 year old male [...] Patient agreeable to treatment plan. Kathleen Stiles APRN.ENVIRONMENTAL COMPLIANCE OFFICER documented in this encounter [facility] Evaluation note No assessment inform ation available [facility] Work Phone: Evaluation note Diagnosis Rhinosinusitis- Primary Unspecified sinusitis (chronic) Acute cough documented [facility] encounter [facility] (narrative)No reason for referral information [facility] Work Phone: Reason for visit Narrative* Diagnostic Procedure Only (Urgent) - Closed Specialty Diagnoses / Procedures Referred By Contcarlos t Referred To Contact XR IMAGING Diagnoses Great toe pain, right Procedures XR TOE AP/LAT/OBL RIGHT RADEX TOE MINIMUM 2 VIEWS Tatiana Amado APRN.ENVIRONMENTAL COMPLIANCE OFFICER [address] [place] [address] [place] [address] Referral ID Status Reason Start Date Expiration Date V isits Requested Visits Authorized [id number] Closed Auto-Generate d Referral 12/27/2022 01/26/2024 1 1 [facility] Summary Purpose Family History No Family History Records FoundNo Family History Records Found Advance Directives No Advanced Directives Records FoundNo Advanced Directives Records Found Chief Complaint and Reason for Visit Chief Complaint Admit Date SKIN April 30, 2024 3:21 pm Chief Complaint Admit Date SKIN April 30, 2024 3:21 pm SKIN May 31, 2024 7:44 am Chief Complaint Admit Date SKIN May 31, 2024 7:44 am Additional [...] or prosecute any alcohol or drug abuse patient.[facility] the event this information is protected by the Federal Confidentiality of Alcohol and Drug Abuse Patient Records regulations: The Federal rules restrict any use of the information to criminally investigate or prosecute any alcohol or drug abuse patient.[facility] HealthIn the event this information is protected by the Federal Confidentiality of Alcohol and Drug Abuse Patient Records regulations: The Federal rules restrict any use of the information to criminally investigate or prosecute any alcohol or drug abuse patient.[facility] Reason for Visit (unrecogniz ed section and content) Reason Comments Pain, Sinus Head congestion, luis antonio n in ears and teeth x 10 days Reason Comments Results Care Teams (unrecognized sec tion and content) Surgical Instrument Repair Specialist Relationship Specialty Start Date End Date Wengerd, Mary (Pss) PCP - General 12/27/22 Team Status: Active Member Role Status Dates Dr. Norm Mayen MD Family Provider Active Shelley Little [employer] PRINTING MACHINIST, [employer] PRINTING MACHINIST-C Primary Care Provider Active Team Status: Inactive Member Role Status Dates Shelley Little [employer] PRINTING MACHINIST, [employer] PRINTING MACHINIST-C Primary Care Provider Active Dr. Lupe Willoughby MD Attending Provider Active Surgical Instrument Repair Specialist Relationship Specialty Start Date End Date Mary Flores (Pss) PCP - General 12/27/22 Team Status: Inactive Member Role Status Dates Shelley Little [employer] PRINTING MACHINIST, [employer] PRINTING MACHINIST-C Primary Care Provider Active Start: April 30, 2024 End: April 30, 2024 Latrice [place] PA, PA-C Attending Provider Active S tart: April 30, 2024 End: April 30, 2024 Latrice Lauren PA, PA-C Referring Provider Active S tart: April 30, 2024 End: April 30, 2024 Team Status: Inactive Member Role Status Dates Shelley Little [employer] PRINTING MACHINIST, [employer] PRINTING MACHINIST-C Primary Care Provider Active Start: May 31, 2024 End: May 31, 2024 Latrice [place] PA, PA-C Attending Provider Active S tart: May 31, 2024 End: May 31, 2024 Latrice [place] PA, PA-C Referring Provider Active S tart: May 31, 2024 End: May 31, 2024 Team Status: Active Member Role Status Dates Dr. Norm Mayen MD Family Provider Active Sena Flanagan MD Primary Care Provider Active Team Status: Inactive Member Role Status Dates Sena Flanagan MD Primary Care Provider Active St art: August 08, 2024 End: August 08, 2024 Sena Flanagan MD Attending Provider Active Start : August 08, 2024 End: August 08, 2024 Sena Flanagan MD Referring Provider Active Start : August 08, 2024 End: August 08, 2024 Team Status: Active Member Role/Relationship Status Dates Dr. Norm Mayen MD Family Provider Active Sena Flanagan MD Primary Care Provider Active Team Status: Inactive Member Role/Relationship Status Dates Shelley Little [employer] PRINTING MACHINIST, [employer] PRINTING MACHINIST-C Primary Care Provider Active Start: May 31, 2024 End: May 31, 2024 Latrice [place] PA, PA-C Attending Provider Active S tart: May 31, 2024 End: May 31, 2024 Latrice STALLWORTH PA-C Referring Provider Active S tart: May 31, 2024 End: May 31, 2024 Team Status: Inactive Member Role/Relationship Status Dates Snea Flanagan MD Primary Care Provider Active St art: August 08, 2024 End: August 08, 2024 Sena Flanagan MD Attending Provider Active Start : August 08, 2024 End: August 08, 2024 Sena Flanagan MD Referring Provider Active Start : August 08, 2024 End: August 08, 2024 Team Status: Inactive Member Role/Relationship Status Dates Sena Flanagan MD Primary Care Provider Active St art: September 06, 2024 End: September 06, 2024 Latrice STALLWORTH PA-C Attending Provider Active S tart: September 06, 2024 End: September 06, 2024 (unrecognized sect ion and content) No Status Records FoundNo Status Records Found INFORMATION SOURCE (unrecogn ized section and content) DATE CREATED AUTHOR 02/17/2023 [facility] DATE CREATED AUTHOR 'S ORGANIZ ATION 09/15/2024 [facility] FOR RECORDS PERTAINING TO PATIENTS WHO ARE [...] BE BASED ON THE PRIMARY CLINICAL RECORDS. [employer] provides no warranty or guarantee of the accuracy or completeness of information in this document.
[2025-01-28 11:08] LABS: QNTFERON TB Mitogen Value > 10.00 IU/mL (.); QNTFERON TB Nil Value > 10.00 IU/mL (.); QNTFERON TB1+ Ag Value > 10.00 IU/mL (.); QNTFERON TB2+ Ag Value > 10.00 IU/mL (.); QNTIFERON TB Positive Criteria Indeterminate (Negative)
== END | disposition home or self-care (01) ==
PROVIDERS: PCP Family Medicine; Referring Provider Dermatology Pediatric Dermatology; Visit Provider Dermatology Pediatric Dermatology
DX: L40.0 Psoriasis vulgaris (principal)
CPT/HCPCS: 36415; 71046; 86480